=== PATIENT | male | born 1985 | race Caucasian/White ===

== ENCOUNTER 2023-01-08 07:15 | Inpatient (IN) | payer OTHER ==
[~2023-01-08] VITALS: Ht 170.2 cm; Wt 88.8 kg
[2023-01-08] MEDS ORDERED: LISI-894 PO (07:44)
[2023-01-08] MEDS ORDERED: METF-1211 PO (07:44)
[2023-01-08 08:28] LABS: BASOPHILS % (AUTO) 0.9 % (0.0-2.0); EOSINOPHILS % (AUTO) 4.5 % (1.0-6.0); HEMATOCRIT 30.1 % (41-53); HEMOGLOBIN 9.7 g/dL (13.5-17.5); LYMPHOCYTES # (AUTO) 1.4 K/uL (1.0-4.8); MEAN CORPUSCULAR HGB CONC 32.1 G/dL (31.0-37.0); MEAN CORPUSCULAR VOLUME 78 fL (80-100); MONOCYTES # (AUTO) 0.8 K/uL (0.1-1.0); MONOCYTES % (AUTO) 8.3 % (2.0-9.0); NEUTROPHILS % (AUTO) 72.3 % (40.0-70.0); PLATELET COUNT (AUTO) 311 K/uL (150-450); RED BLOOD CELL COUNT(AUTO) 3.86 MIL/uL (4.50-5.90); RED CELL DISTRIBUTION WIDTH 13.6 % (11.5-14.5)
[2023-01-08 08:40] LABS: PROTHROMBIN TIME 10.4 SEC (9.4-11.6)
[2023-01-08 08:50] LABS: ALBUMIN 1.9 g/dL (3.4-5.0); BILIRUBIN,TOTAL 0.5 mg/dL (0.1-1.0); CALCIUM, TOTAL 8.7 mg/dL (8.8-10.5); CREATININE 5.04 mg/dL (0.60-1.30); POTASSIUM 4.3 mmol/L (3.5-5.1); TOTAL PROTEIN, SERUM 6.4 g/dL (6.4-8.2)
[2023-01-08] MEDS ORDERED: INSULIN REGULAR, HUMAN 100 UNITS/ML IVP ONE (09:15)
[2023-01-08] MEDS ORDERED: SODIUM CHLORIDE 0.9% 1,000 ML IV ONE (09:15)
[2023-01-08] MEDS ORDERED: BISACODYL 10 MG RECTAL RECTAL SUPPOSITORY PR PRN (09:30)
[2023-01-08] MEDS ORDERED: ONDANSETRON HCL 4 MG/2 ML VIAL IVP PRN (09:30)
[2023-01-08] MEDS ORDERED: DEXTROSE 50%-WATER 25 GM/50 ML SYRINGE IVP PRN (09:30)
[2023-01-08] MEDS ORDERED: LISINOPRIL 20 MG TABLET PO SCH (10:00)
[2023-01-08 10:25] LABS: APPEARANCE,URINE CLEAR (CLEAR); BILIRUBIN,URINE NEGATIVE (NEGATIVE); GLUCOSE, URINE (UA) >=1000 mg/dL (NEGATIVE); KETONES,URINE TRACE mg/dL (NEGATIVE); LEUKOCYTE ESTERASE ,URINE NEGATIVE (NEGATIVE); NITRATE,URINE NEGATIVE (NEGATIVE); OCCULT BLOOD,URINE MODERATE (NEGATIVE); PROTEIN,URINE 300-600,SEE CONFIRM mg/dL (NEGATIVE); SPECIFIC GRAVITIY, URINE 1.013 (1.003-1.030); UROBILINOGEN,URINE <=1.0 mg/dL (<=1.0)
[2023-01-08 10:35] LABS: BACTERIA,URINE Rare /HPF (None Seen); COARSE GRANULAR CASTS,URINE 0-2 /LPF (None Seen); HYALINE CASTS, URINE 0-2 /LPF (None Seen)
[2023-01-08 10:36] LABS: SULFOSALICYLIC ACID,URINE 3+ (Negative)
[2023-01-08] MEDS: SODIUM CHLORIDE 0.9% 1,000 ML IV SCH ×4 (11:01→23:48)
[2023-01-08 11:56] VITALS: BP 185/113; PULSE 95; RESP 18; TEMP 98
[2023-01-08] MEDS: INSULIN LISPRO 100 UNITS/ML SQ PRN ×3 (12:16→20:44)
[2023-01-08] MEDS: CloNIDine HCL 0.1 MG TABLET PO PRN (12:22)
[2023-01-08 12:33] LABS: HEMOGLOBIN A1C 10.6 % (3.8-5.6)
[2023-01-08 12:53] VITALS: BP 164/101; PULSE 94
[2023-01-08 12:53] LABS: ANION GAP 14 mmol/L (8-16); CALCIUM, TOTAL 8.5 mg/dL (8.8-10.5); CARBON DIOXIDE 22 mmol/L (22-29); CHLORIDE 97 mmol/L (98-107); CREATININE 4.89 mg/dL (0.60-1.30); FERRITIN 165 ng/mL (26-388); GLOMERULAR FILTR. RATE CALC 13 mL/min (>60); POTASSIUM 4.2 mmol/L (3.5-5.1); SODIUM SERUM 133 mmol/L (136-145)
[2023-01-08 13:00] LABS: GLUCOSE,RANDOM 423 mg/dL (70-110)
[2023-01-08 13:16] LABS: GLUCOMETER DEV NAME(LOC) 5N.2C
[2023-01-08] MEDS: AmLODIPine BESYLATE 10 MG TABLET PO SCH (13:23)
[2023-01-08 13:30] LABS: % IRON SATURATION 19.8 % (30-44); IRON, SERUM 45 mcg/dL (50-175); TOTAL IRON BINDING CAPACITY 227 mcg/dL (250-450)
[2023-01-08 13:32] LABS: ACETAMINOPHEN < 2 mcg/mL (10-30)
[2023-01-08] MEDS: HEPARIN SODIUM,PORCINE 5,000 UNITS/ML VIAL SQ SCH ×2 (17:43→23:56)
[2023-01-08 17:44] VITALS: BP 178/112; PULSE 90; RESP 19; TEMP 97.8
[2023-01-08 18:00] LABS: GLUCOMETER DEV NAME(LOC) 5N.1C
[2023-01-08] MEDS ORDERED: LOSARTAN POTASSIUM 50 MG TABLET PO SCH (19:00)
[2023-01-08 20:02] VITALS: BP 145/83; PULSE 94; RESP 19; TEMP 97.9
[2023-01-08] MEDS: DOCUSATE SODIUM 100 MG CAPSULE PO SCH (20:22)
[2023-01-08] MEDS: INSULIN GLARGINE,HUM.REC.ANLOG 100 UNITS/ML SQ SCH (20:44)
[2023-01-08 20:56] LABS: GLUCOMETER DEV NAME(LOC) 5S.1B
[2023-01-08 23:04] LABS: CREATININE,URINE RANDOM 42.1 mg/dL (30.0-125.0)
[2023-01-09 00:27] VITALS: BP 142/98; PULSE 95; RESP 20; TEMP 98.2
[2023-01-09 05:23] VITALS: BP 144/92; PULSE 96; RESP 19; TEMP 97.7
[2023-01-09] MEDS: SODIUM CHLORIDE 0.9% 1,000 ML IV SCH ×2 (05:53→16:09)
[2023-01-09 06:11] LABS: CALCIUM, TOTAL 8.2 mg/dL (8.8-10.5); CREATININE 4.07 mg/dL (0.60-1.30); POTASSIUM 3.5 mmol/L (3.5-5.1)
[2023-01-09] MEDS: INSULIN LISPRO 100 UNITS/ML SQ PRN ×4 (06:20→20:50)
[2023-01-09 06:41] LABS: GLUCOMETER DEV NAME(LOC) 5N.2C
[2023-01-09 07:45] VITALS: BP 174/117; PULSE 99; RESP 23; TEMP 98.2
[2023-01-09] MEDS: HEPARIN SODIUM,PORCINE 5,000 UNITS/ML VIAL SQ SCH ×3 (08:40→23:56)
[2023-01-09] MEDS: FAMOTIDINE 20 MG TABLET PO SCH (08:40)
[2023-01-09] MEDS: AmLODIPine BESYLATE 10 MG TABLET PO SCH (08:41)
[2023-01-09] MEDS: CloNIDine HCL 0.1 MG TABLET PO PRN (08:41)
[2023-01-09] MEDS: DOCUSATE SODIUM 100 MG CAPSULE PO SCH ×2 (08:42→19:45)
[2023-01-09] MEDS ORDERED: AmLODIPine BESYLATE 10 MG TABLET PO SCH ×2 (09:00)
[2023-01-09] MEDS: CloNIDine HCL 0.1 MG TABLET PO SCH ×2 (10:12→20:53)
[2023-01-09 12:00] VITALS: BP 140/91; PULSE 94; RESP 18; TEMP 98.4
[2023-01-09 16:00] VITALS: BP 150/102; PULSE 94; RESP 16; TEMP 97.8
[2023-01-09 19:53] VITALS: BP 143/100; PULSE 95; RESP 18; TEMP 98.2
[2023-01-09 20:11] LABS: GLUCOMETER DEV NAME(LOC) 5N.2C
[2023-01-09 20:11] LABS: GLUCOMETER DEV NAME(LOC) 5N.2C
[2023-01-09] MEDS: INSULIN GLARGINE,HUM.REC.ANLOG 100 UNITS/ML SQ SCH (20:52)
[2023-01-09 21:21] LABS: GLUCOMETER DEV NAME(LOC) 5S.1B
[2023-01-10] VITALS (7 sets, daily range): BP systolic 134–177; BP diastolic 85–107; PULSE 86–94; RESP 17–18; TEMP 97.6–98.4
[2023-01-10] MEDS: SODIUM CHLORIDE 0.9% 1,000 ML IV SCH (05:01)
[2023-01-10] MEDS: CloNIDine HCL 0.1 MG TABLET PO PRN (05:56)
[2023-01-10 08:05] LABS: CALCIUM, TOTAL 8.2 mg/dL (8.8-10.5); CREATININE 3.71 mg/dL (0.60-1.30); POTASSIUM 3.8 mmol/L (3.5-5.1)
[2023-01-10] MEDS: DOCUSATE SODIUM 100 MG CAPSULE PO SCH ×2 (09:00→20:00)
[2023-01-10] MEDS: AmLODIPine BESYLATE 10 MG TABLET PO SCH (09:16)
[2023-01-10] MEDS: FAMOTIDINE 20 MG TABLET PO SCH (09:17)
[2023-01-10] MEDS: HEPARIN SODIUM,PORCINE 5,000 UNITS/ML VIAL SQ SCH ×3 (09:17→23:22)
[2023-01-10] MEDS: CloNIDine HCL 0.1 MG TABLET PO SCH ×2 (09:17→20:00)
[2023-01-10] MEDS: INSULIN LISPRO 100 UNITS/ML SQ PRN ×3 (11:40→20:01)
[2023-01-10 12:06] LABS: GLUCOMETER DEV NAME(LOC) 5S.1B
[2023-01-10 12:06] LABS: GLUCOMETER DEV NAME(LOC) 5S.1B
[2023-01-10] MEDS ORDERED: LOPERAMIDE HCL 2 MG CAPSULE PO PRN (16:15)
[2023-01-10 18:06] LABS: GLUCOMETER DEV NAME(LOC) 5S.1B
[2023-01-10] MEDS: INSULIN GLARGINE,HUM.REC.ANLOG 100 UNITS/ML SQ SCH (20:00)
[2023-01-10 20:45] LABS: GLUCOMETER DEV NAME(LOC) 5S.2C
[2023-01-11 01:38] VITALS: BP 148/99; PULSE 90; RESP 14; TEMP 97.7
[2023-01-11] MEDS: ACETAMINOPHEN 325 MG TABLET PO PRN (02:22)
[2023-01-11 06:00] VITALS: BP 150/97; PULSE 89; RESP 16; TEMP 98.5
[2023-01-11 08:00] VITALS: BP 146/103; PULSE 98; RESP 18; TEMP 97.5
[2023-01-11] MEDS: FAMOTIDINE 20 MG TABLET PO SCH (08:45)
[2023-01-11] MEDS: CloNIDine HCL 0.1 MG TABLET PO SCH ×2 (08:45→20:32)
[2023-01-11] MEDS: AmLODIPine BESYLATE 10 MG TABLET PO SCH (08:45)
[2023-01-11] MEDS: HEPARIN SODIUM,PORCINE 5,000 UNITS/ML VIAL SQ SCH ×3 (08:45→23:48)
[2023-01-11] MEDS: DOCUSATE SODIUM 100 MG CAPSULE PO SCH (08:46)
[2023-01-11 12:00] VITALS: BP 141/102; PULSE 91; RESP 18; TEMP 98
[2023-01-11] MEDS: INSULIN LISPRO 100 UNITS/ML SQ PRN ×3 (12:28→20:34)
[2023-01-11] MEDS ORDERED: EPOETIN ALFA 10,000 UNITS/ML VIAL SQ ONE (15:00)
[2023-01-11 16:00] VITALS: BP 157/100; PULSE 89; RESP 18; TEMP 98.4
[2023-01-11 20:03] VITALS: BP 144/85; PULSE 90; RESP 19; TEMP 97.6
[2023-01-11] MEDS: INSULIN GLARGINE,HUM.REC.ANLOG 100 UNITS/ML SQ SCH (20:33)
[2023-01-11 22:56] LABS: GLUCOMETER DEV NAME(LOC) 5N.1C
[2023-01-11 22:56] LABS: GLUCOMETER DEV NAME(LOC) 5N.1C
[2023-01-11] MEDS: CloNIDine HCL 0.1 MG TABLET PO PRN (23:49)
[2023-01-12] VITALS (7 sets, daily range): BP systolic 113–162; BP diastolic 68–102; PULSE 80–87; RESP 16–20; TEMP 97.5–98.2
[2023-01-12 00:36] LABS: GLUCOMETER DEV NAME(LOC) 5S.1B
[2023-01-12 00:36] LABS: GLUCOMETER DEV NAME(LOC) 5S.2C
[2023-01-12] MEDS: INSULIN LISPRO 100 UNITS/ML SQ PRN ×2 (06:05→20:59)
[2023-01-12 06:49] LABS: BASOPHILS % (AUTO) 1.3 % (0.0-2.0); HEMATOCRIT 26.4 % (41-53); HEMOGLOBIN 8.8 g/dL (13.5-17.5); LYMPHOCYTES # (AUTO) 1.7 K/uL (1.0-4.8); MEAN CORPUSCULAR HEMOGLOBIN 25.5 pg (26.0-34.0); MEAN CORPUSCULAR HGB CONC 33.5 G/dL (31.0-37.0); MEAN CORPUSCULAR VOLUME 76 fL (80-100); MONOCYTES # (AUTO) 0.5 K/uL (0.1-1.0); MONOCYTES % (AUTO) 6.4 % (2.0-9.0); NEUTROPHILS # (AUTO) 4.6 K/uL (1.8-7.7); NEUTROPHILS % (AUTO) 63.3 % (40.0-70.0); PLATELET COUNT (AUTO) 289 K/uL (150-450); RED BLOOD CELL COUNT(AUTO) 3.45 MIL/uL (4.50-5.90); RED CELL DISTRIBUTION WIDTH 13.5 % (11.5-14.5)
[2023-01-12 07:08] LABS: CREATININE 3.63 mg/dL (0.60-1.30); POTASSIUM 3.6 mmol/L (3.5-5.1)
[2023-01-12 07:15] LABS: MAGNESIUM 1.7 mg/dL (1.80-2.40); PHOSPHORUS 3.8 mg/dL (2.5-4.9)
[2023-01-12] MEDS: FAMOTIDINE 20 MG TABLET PO SCH (09:33)
[2023-01-12] MEDS: HEPARIN SODIUM,PORCINE 5,000 UNITS/ML VIAL SQ SCH ×2 (09:33→17:46)
[2023-01-12] MEDS: AmLODIPine BESYLATE 10 MG TABLET PO SCH (09:33)
[2023-01-12] MEDS: CloNIDine HCL 0.1 MG TABLET PO SCH ×3 (09:34→20:05)
[2023-01-12] MEDS ORDERED: HydrALAZINE HCL 25 MG TABLET PO ONE (14:30)
[2023-01-12] MEDS ORDERED: MAGNESIUM OXIDE 400 MG TABLET PO ONE (15:30)
[2023-01-12 17:26] LABS: GLUCOMETER DEV NAME(LOC) 5N.1C
[2023-01-12] MEDS: HydrALAZINE HCL 50 MG TABLET PO SCH ×2 (17:51→20:01)
[2023-01-12] MEDS: ACETAMINOPHEN 325 MG TABLET PO PRN (20:05)
[2023-01-12] MEDS: INSULIN GLARGINE,HUM.REC.ANLOG 100 UNITS/ML SQ SCH (20:58)
[2023-01-13] VITALS: BP 134/84; PULSE 86; RESP 16; TEMP 97.4
[2023-01-13] MEDS: HEPARIN SODIUM,PORCINE 5,000 UNITS/ML VIAL SQ SCH ×3 (00:21→16:52)
[2023-01-13 02:16] LABS: GLUCOMETER DEV NAME(LOC) 5N.2C
[2023-01-13 04:00] VITALS: BP 126/80; PULSE 84; RESP 18; TEMP 98.1
[2023-01-13 05:41] LABS: GLUCOMETER DEV NAME(LOC) 5S.1B
[2023-01-13] MEDS: CloNIDine HCL 0.1 MG TABLET PO SCH ×3 (08:54→21:10)
[2023-01-13] MEDS: AmLODIPine BESYLATE 10 MG TABLET PO SCH (08:54)
[2023-01-13] MEDS: FAMOTIDINE 20 MG TABLET PO SCH (08:55)
[2023-01-13] MEDS: HydrALAZINE HCL 50 MG TABLET PO SCH ×3 (08:56→21:51)
[2023-01-13 09:22] VITALS: BP 141/86; PULSE 87; RESP 18; TEMP 98.4
[2023-01-13 11:06] VITALS: BP 126/75; PULSE 82; RESP 18; TEMP 98.1
[2023-01-13] MEDS: INSULIN LISPRO 100 UNITS/ML SQ PRN ×3 (11:29→21:23)
[2023-01-13 11:41] LABS: GLUCOMETER DEV NAME(LOC) 5N.1C
[2023-01-13 12:26] LABS: GLUCOMETER DEV NAME(LOC) 5N.2C
[2023-01-13] MEDS ORDERED: FAMO20 PO (15:21)
[2023-01-13] MEDS ORDERED: HYDR-4174 PO (15:21)
[2023-01-13] MEDS ORDERED: AMLO-258 PO (15:21)
[2023-01-13] MEDS ORDERED: CLON0.1T2 PO (15:21)
[2023-01-13] MEDS ORDERED: INSU3INS3 SQ (15:24)
[2023-01-13 17:31] LABS: GLUCOMETER DEV NAME(LOC) 5S.2C
[2023-01-13 20:07] VITALS: BP 143/96; PULSE 78; RESP 18; TEMP 97.5
[2023-01-13] MEDS: INSULIN GLARGINE,HUM.REC.ANLOG 100 UNITS/ML SQ SCH (21:22)
[2023-01-13 21:46] LABS: GLUCOMETER DEV NAME(LOC) 5S.1B
[2023-01-14] MEDS: HEPARIN SODIUM,PORCINE 5,000 UNITS/ML VIAL SQ SCH (00:34)
== END 2023-01-14 02:15 | DRG 638 ==
LOC: EMS 07:17 → AHU 08:38 → 5S 10:40
PROVIDERS: ADMIT Internal Medicine; ATTEND Internal Medicine
DX: E11.65 Type 2 diabetes mellitus with hyperglycemia (principal); E87.1 Hypo-osmolality and hyponatremia; N17.9 Acute kidney failure, unspecified; E87.20 Acidosis, unspecified; E11.22 Type 2 diabetes mellitus with diabetic chronic kidney disease; I13.10 Hypertensive heart and chronic kidney disease without heart failure, with stage 1 through stage 4 chronic kidney disease, or unspecified chronic kidney disease; N18.30 Chronic kidney disease, stage 3 unspecified; T78.3XXA Angioneurotic edema, initial encounter; T50.905A Adverse effect of unspecified drugs, medicaments and biological substances, initial encounter; D63.1 Anemia in chronic kidney disease; E66.9 Obesity, unspecified; E88.09 Other disorders of plasma-protein metabolism, not elsewhere classified; E11.40 Type 2 diabetes mellitus with diabetic neuropathy, unspecified; Z68.31 Body mass index [BMI] 31.0-31.9, adult; Z79.899 Other long term (current) drug therapy; Z79.84 Long term (current) use of oral hypoglycemic drugs; Z83.3 Family history of diabetes mellitus
CPT/HCPCS: 71045; 76770; 80048; 80053; 81001; 81002; 82010; 82043; 82550; 82570; 82728; 82962; 83036; 83540; 83550; 83605; 83735; 83880; 84100; 84156; 84300; 84484; 84540; 85025; 85610; 85730; 87086; 87186; 93005; 99285; G0480; G0481; J0885; J1644; J1815; J7030; 36415-L1; 36415-TC

== ENCOUNTER 2023-03-13 01:57 | Inpatient (IN) | payer OTHER ==
[~2023-03-13] VITALS: Ht 165.1 cm; Wt 116.6 kg
[2023-03-13] VITALS (13 sets, daily range): BP systolic 125–173; BP diastolic 62–107; PULSE 90–118; RESP 10–20; TEMP 97.6–98.8; O2SAT 86–98
[~2023-03-13 01:57] MED LIST: AMLO-258 PO; CLON0.1T2 PO; FAMO20 PO; HYDR-4174 PO; INSU3INS3 SQ
[2023-03-13] MEDS ORDERED: KETOROLAC TROMETHAMINE 30 MG/ML VIAL IVP ONE (02:45)
[2023-03-13] MEDS ORDERED: KETOROLAC TROMETHAMINE 15 MG/ML VIAL IVP ONE (02:45)
[2023-03-13 03:08] LABS: BASOPHILS % (AUTO) 0.9 % (0.0-2.0); EOSINOPHILS % (AUTO) 8.5 % (1.0-6.0); LYMPHOCYTES # (AUTO) 0.8 K/uL (1.0-4.8); LYMPHOCYTES % (AUTO) 18.5 % (22.0-44.0); MEAN CORPUSCULAR HEMOGLOBIN 25.1 pg (26.0-34.0); MEAN CORPUSCULAR HGB CONC 31.9 G/dL (31.0-37.0); MEAN CORPUSCULAR VOLUME 79 fL (80-100); MONOCYTES # (AUTO) 0.5 K/uL (0.1-1.0); MONOCYTES % (AUTO) 11.9 % (2.0-9.0); NEUTROPHILS # (AUTO) 2.7 K/uL (1.8-7.7); NEUTROPHILS % (AUTO) 60.2 % (40.0-70.0); PLATELET COUNT (AUTO) 206 K/uL (150-450); RED BLOOD CELL COUNT(AUTO) 2.67 MIL/uL (4.50-5.90); RED CELL DISTRIBUTION WIDTH 17.6 % (11.5-14.5); WHITE BLOOD COUNT (AUTO) 4.6 K/uL (4.5-11.0)
[2023-03-13 03:11] LABS: CALCIUM, TOTAL 8.3 mg/dL (8.8-10.5); CREATININE 5.25 mg/dL (0.60-1.30); POTASSIUM 5.7 mmol/L (3.5-5.1)
[2023-03-13 03:19] LABS: TROPONIN I-HIGH SENSITIVITY 20 ng/L (<76)
[2023-03-13 03:28] LABS: HEMOGLOBIN 6.7 g/dL (13.5-17.5)
[2023-03-13 03:36] LABS: ALBUMIN 2.1 g/dL (3.4-5.0); BILIRUBIN,TOTAL 0.2 mg/dL (0.1-1.0); TOTAL PROTEIN, SERUM 6.7 g/dL (6.4-8.2)
[2023-03-13 03:40] LABS: APPEARANCE,URINE CLEAR (CLEAR); BILIRUBIN,URINE NEGATIVE (NEGATIVE); COLOR,URINE LIGHT YELLOW (YELLOW); GLUCOSE, URINE (UA) >=1000 mg/dL (NEGATIVE); KETONES,URINE NEGATIVE (NEGATIVE); LEUKOCYTE ESTERASE ,URINE NEGATIVE (NEGATIVE); NITRATE,URINE NEGATIVE (NEGATIVE); OCCULT BLOOD,URINE TRACE (NEGATIVE); PROTEIN,URINE 300-600,SEE CONFIRM mg/dL (NEGATIVE); SPECIFIC GRAVITIY, URINE 1.012 (1.003-1.030); UROBILINOGEN,URINE <=1.0 mg/dL (<=1.0)
[2023-03-13] MEDS ORDERED: ALBUTEROL SULFATE 2.5 MG/0.5 ML 5 ML NEB SOLUTION NEB ONE (03:45)
[2023-03-13] MEDS ORDERED: SODIUM POLYSTYRENE SULFONATE 15 GM/60 ML SUSPENSION BOTTLE PO ONE (03:45)
[2023-03-13] MEDS ORDERED: FUROSEMIDE 40 MG/4 ML VIAL IVP ONE (03:45)
[2023-03-13 04:03] LABS: BACTERIA,URINE None Seen /HPF (None Seen); SQUAMOUS EPITHELIAL CELL,UR Few /LPF (None Seen); SULFOSALICYLIC ACID,URINE 4+ (Negative); WBC,URINE 0-2 /HPF (0-5)
[2023-03-13] MEDS ORDERED: ONDANSETRON HCL 4 MG/2 ML VIAL IVP PRN (04:30)
[2023-03-13 04:56] LABS: COVID AG,FIA SOURCE NASAL SWAB
[2023-03-13 05:29] LABS: CREATININE,URINE RANDOM 42.7 mg/dL (30.0-125.0)
[2023-03-13 05:32] LABS: % IRON SATURATION 36.5 % (30-44)
[2023-03-13] MEDS ORDERED: DEXTROSE 50%-WATER 25 GM/50 ML SYRINGE IVP PRN (05:45)
[2023-03-13 05:47] LABS: SARS-COV2 (COVID) ANTIGEN,FIA Negative (Negative)
[2023-03-13 06:15] LABS: CREATININE 5.37 mg/dL (0.60-1.30); POTASSIUM 4.9 mmol/L (3.5-5.1)
[2023-03-13] MEDS: OXYGEN THERAPY IH SCH ×2 (06:36→20:23)
[2023-03-13] MEDS ORDERED: BUMETANIDE 0.25 MG/ML 4 ML VIAL IVP ONE (06:45)
[2023-03-13] MEDS: DOCUSATE SODIUM 100 MG CAPSULE PO SCH ×2 (08:33→20:24)
[2023-03-13] MEDS: HydrALAZINE HCL 50 MG TABLET PO SCH ×3 (09:32→20:05)
[2023-03-13] MEDS: BUMETANIDE 0.25 MG/ML 4 ML VIAL IVP SCH ×2 (09:34→20:05)
[2023-03-13] MEDS: AmLODIPine BESYLATE 5 MG TABLET PO SCH ×2 (09:47→20:05)
[2023-03-13 10:04] LABS: EOSINOPHILS % (AUTO) 3.1 % (1.0-6.0); HEMATOCRIT 22.8 % (41-53); HEMOGLOBIN 7.3 g/dL (13.5-17.5); LYMPHOCYTES # (AUTO) 0.8 K/uL (1.0-4.8); LYMPHOCYTES % (AUTO) 17.1 % (22.0-44.0); MEAN CORPUSCULAR HEMOGLOBIN 25.6 pg (26.0-34.0); MEAN CORPUSCULAR HGB CONC 31.9 G/dL (31.0-37.0); MEAN CORPUSCULAR VOLUME 80 fL (80-100); MONOCYTES # (AUTO) 0.7 K/uL (0.1-1.0); MONOCYTES % (AUTO) 13.9 % (2.0-9.0); NEUTROPHILS # (AUTO) 3.2 K/uL (1.8-7.7); NEUTROPHILS % (AUTO) 64.9 % (40.0-70.0); PLATELET COUNT (AUTO) 202 K/uL (150-450); RED BLOOD CELL COUNT(AUTO) 2.84 MIL/uL (4.50-5.90); RED CELL DISTRIBUTION WIDTH 18.4 % (11.5-14.5)
[2023-03-13 12:13] LABS: CREATININE 5.27 mg/dL (0.60-1.30)
[2023-03-13] MEDS: CITRIC ACID/SODIUM CITRATE 30 ML SOLUTION UDCUP PO SCH ×2 (12:15→21:11)
[2023-03-13] MEDS: INSULIN LISPRO 100 UNITS/ML SQ PRN ×3 (12:16→21:18)
[2023-03-13 12:46] LABS: ABG CARBOXYHEMOGLOBIN 1.6 % (0.0-1.5); ABG HCO3 16.2 mmol/L (22.0-26.0); ABG METHEMOGLOBIN 0.3 % (0.0-1.5); ABG OXYGEN CONTENT 9.8 mL/dL (15.0-23.0); ABG OXYGEN SATURATION 92.8 % (95.0-98.0); ABG PCO2 36 mmHg (35-45); PO2, ARTERIAL BG 66.1 mmHg (92.0-100.0); SOURCE, BLOOD GAS ARTERIAL
[2023-03-13 12:47] LABS: ABG PH 7.264 (7.350-7.450); ABG TOTAL HEMOGLOBIN 7.6 G/dL (12.0-18.0); ALLEN TEST, BLOOD GAS POS; SITE, BLOOD GAS RT BRACHIAL
[2023-03-13 18:56] LABS: CALCIUM, TOTAL 8.2 mg/dL (8.8-10.5); CREATININE 5.38 mg/dL (0.60-1.30); POTASSIUM 4.9 mmol/L (3.5-5.1)
[2023-03-13 19:15] LABS: PH,URINE DRUG SCREEN 5.5 (5.0-8.0)
[2023-03-13 19:21] LABS: ALCOHOL, URINE DRUG SCREEN NEGATIVE (NEGATIVE); AMPHET/METH SCREEN,URINE NEGATIVE (NEGATIVE); BARBITURATE SCREEN, URINE NEGATIVE (NEGATIVE); BENZODIAZEPINES SCREEN,URINE NEGATIVE (NEGATIVE); CANNABINOID SCREEN,URINE NEGATIVE (NEGATIVE); COCAINE SCREEN,URINE NEGATIVE (NEGATIVE); METHADONE SCREEN, URINE NEGATIVE (NEGATIVE); OPIATE SCREEN,URINE NEGATIVE (NEGATIVE); PHENCYCLIDINE SCREEN,URINE NEGATIVE (NEGATIVE)
[2023-03-13 23:10] LABS: GLUCOSE,POINT OF CARE 266 MG/DL (70-110)
[2023-03-13 23:10] LABS: GLUCOMETER DEV NAME(LOC) PVLAB.39; GLUCOSE,POINT OF CARE 272 MG/DL (70-110)
[2023-03-14] VITALS (10 sets, daily range): BP systolic 143–172; BP diastolic 79–97; PULSE 99–118; RESP 9–22; TEMP 97.5–98.3; O2SAT 95–97
[2023-03-14 06:56] LABS: GLUCOMETER DEV NAME(LOC) PVLAB.39; GLUCOSE,POINT OF CARE 123 MG/DL (70-110)
[2023-03-14 07:02] LABS: BASOPHILS % (AUTO) 0.9 % (0.0-2.0); EOSINOPHILS % (AUTO) 6.1 % (1.0-6.0); HEMATOCRIT 23.8 % (41-53); HEMOGLOBIN 7.8 g/dL (13.5-17.5); LYMPHOCYTES % (AUTO) 17.5 % (22.0-44.0); MEAN CORPUSCULAR HEMOGLOBIN 26.1 pg (26.0-34.0); MEAN CORPUSCULAR HGB CONC 32.8 G/dL (31.0-37.0); MEAN CORPUSCULAR VOLUME 80 fL (80-100); MONOCYTES # (AUTO) 0.6 K/uL (0.1-1.0); MONOCYTES % (AUTO) 10.2 % (2.0-9.0); NEUTROPHILS # (AUTO) 3.9 K/uL (1.8-7.7); NEUTROPHILS % (AUTO) 65.3 % (40.0-70.0); PLATELET COUNT (AUTO) 247 K/uL (150-450); RED BLOOD CELL COUNT(AUTO) 2.99 MIL/uL (4.50-5.90); RED CELL DISTRIBUTION WIDTH 18.2 % (11.5-14.5); WHITE BLOOD COUNT (AUTO) 5.9 K/uL (4.5-11.0)
[2023-03-14 07:23] LABS: CALCIUM, TOTAL 8.5 mg/dL (8.8-10.5); CREATININE 5.24 mg/dL (0.60-1.30); POTASSIUM 4.6 mmol/L (3.5-5.1)
[2023-03-14 07:24] LABS: TROPONIN I-HIGH SENSITIVITY 19 ng/L (<76)
[2023-03-14] MEDS: AmLODIPine BESYLATE 5 MG TABLET PO SCH ×2 (07:47→21:33)
[2023-03-14] MEDS: HydrALAZINE HCL 50 MG TABLET PO SCH ×3 (07:47→21:32)
[2023-03-14] MEDS: DOCUSATE SODIUM 100 MG CAPSULE PO SCH ×3 (07:47→21:33)
[2023-03-14] MEDS: OXYGEN THERAPY IH SCH ×2 (07:47→21:49)
[2023-03-14] MEDS: BUMETANIDE 0.25 MG/ML 4 ML VIAL IVP SCH ×4 (07:48→21:31)
[2023-03-14] MEDS: CITRIC ACID/SODIUM CITRATE 30 ML SOLUTION UDCUP PO SCH ×2 (07:48→21:32)
[2023-03-14] MEDS ORDERED: EPOETIN ALFA 10,000 UNITS/ML VIAL SQ ONE (09:45)
[2023-03-14] MEDS: INSULIN LISPRO 100 UNITS/ML SQ PRN ×3 (11:22→21:43)
[2023-03-14 18:01] LABS: GLUCOMETER DEV NAME(LOC) ICUN.5; GLUCOSE,POINT OF CARE 242 MG/DL (70-110)
[2023-03-14 19:51] LABS: GLUCOMETER DEV NAME(LOC) 5S.1B; GLUCOSE,POINT OF CARE 281 MG/DL (70-110)
[2023-03-14] MEDS ORDERED: CARVEDILOL 3.125 MG TABLET PO SCH (21:00)
[2023-03-14 23:21] LABS: GLUCOMETER DEV NAME(LOC) 5S.1B; GLUCOSE,POINT OF CARE 276 MG/DL (70-110)
[2023-03-15] VITALS (10 sets, daily range): BP systolic 140–155; BP diastolic 79–98; PULSE 99–108; RESP 14–20; TEMP 97.5–98.6; O2SAT 98
[2023-03-15] MEDS: INSULIN LISPRO 100 UNITS/ML SQ PRN ×4 (06:11→21:50)
[2023-03-15 07:15] LABS: CALCIUM, TOTAL 8.1 mg/dL (8.8-10.5); CREATININE 5.37 mg/dL (0.60-1.30); POTASSIUM 4.3 mmol/L (3.5-5.1)
[2023-03-15] MEDS: OXYGEN THERAPY IH SCH ×2 (08:00→20:00)
[2023-03-15] MEDS: CARVEDILOL 6.25 MG TABLET PO SCH ×2 (08:30→21:53)
[2023-03-15] MEDS: DOCUSATE SODIUM 100 MG CAPSULE PO SCH ×3 (08:30→21:52)
[2023-03-15] MEDS: CITRIC ACID/SODIUM CITRATE 30 ML SOLUTION UDCUP PO SCH ×2 (08:30→21:53)
[2023-03-15] MEDS: AmLODIPine BESYLATE 5 MG TABLET PO SCH ×2 (08:30→21:52)
[2023-03-15] MEDS: HydrALAZINE HCL 50 MG TABLET PO SCH ×3 (08:31→21:52)
[2023-03-15] MEDS: BUMETANIDE 0.25 MG/ML 4 ML VIAL IVP SCH ×3 (08:33→21:51)
[2023-03-15 11:31] LABS: GLUCOMETER DEV NAME(LOC) 5N.1C; GLUCOSE,POINT OF CARE 185 MG/DL (70-110)
[2023-03-15] MEDS ORDERED: EPOETIN ALFA 10,000 UNITS/ML VIAL SQ ONE (11:45)
[2023-03-15 12:20] LABS: CREATININE,URINE 31.5 mg/dL (30.0-125.0)
[2023-03-15 12:48] LABS: CREATININE,SERUM FOR CRCL 5.37 mg/dL (0.60-1.30)
[2023-03-15 16:36] LABS: GLUCOMETER DEV NAME(LOC) 5S.1B; GLUCOSE,POINT OF CARE 314 MG/DL (70-110)
[2023-03-15] MEDS: ACETAMINOPHEN 325 MG TABLET PO PRN (17:15)
[2023-03-15 20:11] LABS: GLUCOMETER DEV NAME(LOC) 5N.2C; GLUCOSE,POINT OF CARE 327 MG/DL (70-110)
[2023-03-16 04:31] VITALS: BP 146/78; PULSE 108; RESP 18; TEMP 98.2
[2023-03-16] MEDS: INSULIN LISPRO 100 UNITS/ML SQ PRN ×4 (06:05→20:27)
[2023-03-16 06:06] LABS: PARATHYROID HORMONE INTACT 97 pg/mL (15-65)
[2023-03-16 07:59] VITALS: BP 123/86; PULSE 105; RESP 20; TEMP 98.5
[2023-03-16] MEDS: OXYGEN THERAPY IH SCH ×2 (08:16→20:00)
[2023-03-16] MEDS: DOCUSATE SODIUM 100 MG CAPSULE PO SCH ×2 (08:18→21:00)
[2023-03-16] MEDS: BUMETANIDE 0.25 MG/ML 4 ML VIAL IVP SCH ×3 (08:18→20:29)
[2023-03-16] MEDS: HydrALAZINE HCL 50 MG TABLET PO SCH ×3 (08:18→20:29)
[2023-03-16] MEDS: CITRIC ACID/SODIUM CITRATE 30 ML SOLUTION UDCUP PO SCH ×2 (08:18→20:29)
[2023-03-16] MEDS: AmLODIPine BESYLATE 5 MG TABLET PO SCH ×2 (08:19→20:29)
[2023-03-16] MEDS: CARVEDILOL 12.5 MG TABLET PO SCH ×2 (08:19→20:29)
[2023-03-16 11:41] LABS: GLUCOMETER DEV NAME(LOC) 5N.2C; GLUCOSE,POINT OF CARE 254 MG/DL (70-110)
[2023-03-16 11:41] LABS: GLUCOMETER DEV NAME(LOC) 5N.2C; GLUCOSE,POINT OF CARE 231 MG/DL (70-110)
[2023-03-16 11:43] VITALS: BP 146/88; PULSE 101; RESP 20; TEMP 98.1
[2023-03-16 13:41] LABS: GLUCOMETER DEV NAME(LOC) 5N.1C; GLUCOSE,POINT OF CARE 304 MG/DL (70-110)
[2023-03-16 16:00] VITALS: BP 123/87; PULSE 101; RESP 20; TEMP 98.2
[2023-03-16 20:11] VITALS: BP 133/78; PULSE 98; RESP 18; TEMP 97.8
[2023-03-16 22:56] LABS: GLUCOMETER DEV NAME(LOC) 5N.2C; GLUCOSE,POINT OF CARE 266 MG/DL (70-110)
[2023-03-16 23:47] VITALS: BP 143/79; PULSE 96; RESP 18; TEMP 98.7
[2023-03-17 01:36] LABS: GLUCOMETER DEV NAME(LOC) 5S.1B; GLUCOSE,POINT OF CARE 313 MG/DL (70-110)
[2023-03-17 04:26] VITALS: BP 144/93; PULSE 100; RESP 20; TEMP 98
[2023-03-17] MEDS: INSULIN LISPRO 100 UNITS/ML SQ PRN ×4 (05:25→20:59)
[2023-03-17 06:06] LABS: ALPHA-1 URINE (ELP24) 5.8 %; BETA URINE(ELP24) 17.4 %; GAMMA URINE(ELP24) 25.7 %; PROTEIN,URINE 24HR 20976 mg/24 hr (30-150)
[2023-03-17 06:48] LABS: BASOPHILS % (AUTO) 0.6 % (0.0-2.0); EOSINOPHILS % (AUTO) 8.6 % (1.0-6.0); HEMATOCRIT 23.5 % (41-53); HEMOGLOBIN 7.7 g/dL (13.5-17.5); LYMPHOCYTES # (AUTO) 1.2 K/uL (1.0-4.8); LYMPHOCYTES % (AUTO) 19.8 % (22.0-44.0); MEAN CORPUSCULAR HEMOGLOBIN 25.9 pg (26.0-34.0); MEAN CORPUSCULAR HGB CONC 32.6 G/dL (31.0-37.0); MEAN CORPUSCULAR VOLUME 80 fL (80-100); MONOCYTES # (AUTO) 0.5 K/uL (0.1-1.0); MONOCYTES % (AUTO) 7.7 % (2.0-9.0); NEUTROPHILS # (AUTO) 3.9 K/uL (1.8-7.7); NEUTROPHILS % (AUTO) 63.3 % (40.0-70.0); PLATELET COUNT (AUTO) 249 K/uL (150-450); RED BLOOD CELL COUNT(AUTO) 2.96 MIL/uL (4.50-5.90); WHITE BLOOD COUNT (AUTO) 6.1 K/uL (4.5-11.0)
[2023-03-17 07:08] LABS: CALCIUM, TOTAL 8.6 mg/dL (8.8-10.5); CREATININE 5.37 mg/dL (0.60-1.30); MAGNESIUM 1.9 mg/dL (1.80-2.40); PHOSPHORUS 5.9 mg/dL (2.5-4.9); POTASSIUM 4.2 mmol/L (3.5-5.1)
[2023-03-17 08:21] VITALS: BP 154/99; PULSE 95; RESP 18; TEMP 98.4
[2023-03-17] MEDS: BUMETANIDE 0.25 MG/ML 4 ML VIAL IVP SCH ×3 (08:30→20:58)
[2023-03-17] MEDS: HydrALAZINE HCL 50 MG TABLET PO SCH ×3 (08:31→20:58)
[2023-03-17] MEDS: CITRIC ACID/SODIUM CITRATE 30 ML SOLUTION UDCUP PO SCH ×2 (08:31→20:57)
[2023-03-17] MEDS: AmLODIPine BESYLATE 5 MG TABLET PO SCH ×2 (08:32→20:58)
[2023-03-17] MEDS: CARVEDILOL 12.5 MG TABLET PO SCH ×2 (08:32→20:58)
[2023-03-17] MEDS: DOCUSATE SODIUM 100 MG CAPSULE PO SCH ×2 (08:32→21:00)
[2023-03-17] MEDS: OXYGEN THERAPY IH SCH ×2 (08:36→20:00)
[2023-03-17] MEDS ORDERED: METOLAZONE 5 MG TABLET PO ONE (11:00)
[2023-03-17 11:26] LABS: GLUCOMETER DEV NAME(LOC) 5S.1B; GLUCOSE,POINT OF CARE 251 MG/DL (70-110)
[2023-03-17 11:56] VITALS: BP 121/76; PULSE 93; RESP 18; TEMP 98.2
[2023-03-17 16:09] VITALS: BP 138/84; PULSE 95; RESP 18; TEMP 98
[2023-03-17 20:42] VITALS: BP 155/93; PULSE 93; RESP 19; TEMP 97.6
[2023-03-17 22:01] LABS: GLUCOMETER DEV NAME(LOC) 5N.1C; GLUCOSE,POINT OF CARE 324 MG/DL (70-110)
[2023-03-17 22:06] LABS: GLUCOMETER DEV NAME(LOC) 5N.2C; GLUCOSE,POINT OF CARE 274 MG/DL (70-110)
[2023-03-17 22:06] LABS: GLUCOMETER DEV NAME(LOC) 5S.1B; GLUCOSE,POINT OF CARE 310 MG/DL (70-110)
[2023-03-18] VITALS: BP 142/89; PULSE 93; RESP 18; TEMP 98
[2023-03-18 04:56] VITALS: BP 157/88; PULSE 99; RESP 19; TEMP 98.2
[2023-03-18] MEDS: INSULIN LISPRO 100 UNITS/ML SQ PRN ×4 (06:46→21:43)
[2023-03-18 08:00] VITALS: BP 117/77; PULSE 99; RESP 18; TEMP 98.1
[2023-03-18] MEDS: CARVEDILOL 12.5 MG TABLET PO SCH ×2 (08:42→21:42)
[2023-03-18] MEDS: AmLODIPine BESYLATE 5 MG TABLET PO SCH ×2 (08:42→21:42)
[2023-03-18] MEDS: HydrALAZINE HCL 50 MG TABLET PO SCH ×3 (08:43→21:42)
[2023-03-18] MEDS: CITRIC ACID/SODIUM CITRATE 30 ML SOLUTION UDCUP PO SCH ×2 (08:43→21:42)
[2023-03-18] MEDS: BUMETANIDE 0.25 MG/ML 4 ML VIAL IVP SCH ×3 (08:53→21:42)
[2023-03-18] MEDS: DOCUSATE SODIUM 100 MG CAPSULE PO SCH ×2 (08:54→21:00)
[2023-03-18] MEDS ORDERED: METOLAZONE 5 MG TABLET PO ONE (09:00)
[2023-03-18 10:31] LABS: GLUCOMETER DEV NAME(LOC) 5S.2C; GLUCOSE,POINT OF CARE 285 MG/DL (70-110)
[2023-03-18 11:14] VITALS: BP 128/72; PULSE 96; RESP 18; TEMP 98.4
[2023-03-18 16:14] VITALS: BP 142/81; PULSE 92; RESP 18; TEMP 98.3
[2023-03-18] MEDS ORDERED: INSULIN LISPRO 100 UNITS/ML SQ ONE (17:45)
[2023-03-18 19:02] LABS: GLUCOMETER DEV NAME(LOC) 5N.1C; GLUCOSE,POINT OF CARE 363 MG/DL (70-110)
[2023-03-18 20:10] VITALS: BP 142/79; PULSE 95; RESP 19; TEMP 97.8
[2023-03-18] MEDS: OXYGEN THERAPY IH SCH (21:42)
[2023-03-19 00:16] VITALS: BP 122/61; PULSE 93; RESP 18; TEMP 98.3
[2023-03-19 04:55] VITALS: BP 133/76; PULSE 92; RESP 18; TEMP 97.7
[2023-03-19 06:17] LABS: EOSINOPHILS % (AUTO) 7.7 % (1.0-6.0); HEMATOCRIT 22.3 % (41-53); HEMOGLOBIN 7.5 g/dL (13.5-17.5); LYMPHOCYTES # (AUTO) 1.2 K/uL (1.0-4.8); LYMPHOCYTES % (AUTO) 18.9 % (22.0-44.0); MEAN CORPUSCULAR HEMOGLOBIN 26.1 pg (26.0-34.0); MEAN CORPUSCULAR HGB CONC 33.6 G/dL (31.0-37.0); MEAN CORPUSCULAR VOLUME 78 fL (80-100); MONOCYTES # (AUTO) 0.7 K/uL (0.1-1.0); MONOCYTES % (AUTO) 10.3 % (2.0-9.0); NEUTROPHILS % (AUTO) 62.1 % (40.0-70.0); PLATELET COUNT (AUTO) 232 K/uL (150-450); RED BLOOD CELL COUNT(AUTO) 2.86 MIL/uL (4.50-5.90); WHITE BLOOD COUNT (AUTO) 6.4 K/uL (4.5-11.0)
[2023-03-19] MEDS: INSULIN LISPRO 100 UNITS/ML SQ PRN ×4 (06:23→21:04)
[2023-03-19 06:28] LABS: CALCIUM, TOTAL 8.4 mg/dL (8.8-10.5); CREATININE 5.47 mg/dL (0.60-1.30); POTASSIUM 3.9 mmol/L (3.5-5.1)
[2023-03-19 06:37] LABS: MAGNESIUM 1.7 mg/dL (1.80-2.40); PHOSPHORUS 5.6 mg/dL (2.5-4.9)
[2023-03-19 07:13] VITALS: BP 132/84; PULSE 92; RESP 18; TEMP 98.2
[2023-03-19] MEDS: BUMETANIDE 0.25 MG/ML 4 ML VIAL IVP SCH ×3 (07:57→21:06)
[2023-03-19] MEDS: AmLODIPine BESYLATE 5 MG TABLET PO SCH ×2 (07:57→21:05)
[2023-03-19] MEDS: CARVEDILOL 12.5 MG TABLET PO SCH ×2 (07:57→21:05)
[2023-03-19] MEDS: HydrALAZINE HCL 50 MG TABLET PO SCH ×3 (07:57→21:05)
[2023-03-19] MEDS: CITRIC ACID/SODIUM CITRATE 30 ML SOLUTION UDCUP PO SCH ×2 (07:57→21:06)
[2023-03-19] MEDS: DOCUSATE SODIUM 100 MG CAPSULE PO SCH ×2 (08:07→21:05)
[2023-03-19 08:27] LABS: GLUCOMETER DEV NAME(LOC) 5S.1B; GLUCOSE,POINT OF CARE 262 MG/DL (70-110)
[2023-03-19 08:27] LABS: GLUCOMETER DEV NAME(LOC) 5S.1B; GLUCOSE,POINT OF CARE 417 MG/DL (70-110)
[2023-03-19 11:48] VITALS: BP 129/82; PULSE 90; RESP 19; TEMP 98
[2023-03-19 16:00] VITALS: BP 154/82; PULSE 72; RESP 18; TEMP 98
[2023-03-19 17:36] LABS: GLUCOMETER DEV NAME(LOC) 5N.1C; GLUCOSE,POINT OF CARE 360 MG/DL (70-110)
[2023-03-19 20:00] VITALS: BP 145/79; PULSE 94; RESP 20; TEMP 98.1
[2023-03-19] MEDS: INSULIN GLARGINE,HUM.REC.ANLOG 100 UNITS/ML SQ SCH (21:05)
[2023-03-20 06:06] LABS: GLUCOMETER DEV NAME(LOC) 5S.2C; GLUCOSE,POINT OF CARE 396 MG/DL (70-110)
[2023-03-20 06:06] LABS: GLUCOMETER DEV NAME(LOC) 5S.2C; GLUCOSE,POINT OF CARE 400 MG/DL (70-110)
[2023-03-20 07:01] LABS: BASOPHILS % (AUTO) 1.1 % (0.0-2.0); EOSINOPHILS % (AUTO) 6.7 % (1.0-6.0); HEMOGLOBIN 7.6 g/dL (13.5-17.5); LYMPHOCYTES # (AUTO) 1.3 K/uL (1.0-4.8); LYMPHOCYTES % (AUTO) 19.4 % (22.0-44.0); MEAN CORPUSCULAR HGB CONC 33.1 G/dL (31.0-37.0); MEAN CORPUSCULAR VOLUME 78 fL (80-100); MONOCYTES # (AUTO) 0.6 K/uL (0.1-1.0); MONOCYTES % (AUTO) 8.4 % (2.0-9.0); NEUTROPHILS # (AUTO) 4.3 K/uL (1.8-7.7); NEUTROPHILS % (AUTO) 64.4 % (40.0-70.0); PLATELET COUNT (AUTO) 261 K/uL (150-450); RED BLOOD CELL COUNT(AUTO) 2.93 MIL/uL (4.50-5.90); RED CELL DISTRIBUTION WIDTH 17.5 % (11.5-14.5); WHITE BLOOD COUNT (AUTO) 6.7 K/uL (4.5-11.0)
[2023-03-20 07:01] LABS: GLUCOMETER DEV NAME(LOC) 5N.2C; GLUCOSE,POINT OF CARE 295 MG/DL (70-110)
[2023-03-20] MEDS: INSULIN LISPRO 100 UNITS/ML SQ PRN ×4 (07:01→20:42)
[2023-03-20 07:10] LABS: CALCIUM, TOTAL 8.2 mg/dL (8.8-10.5); CREATININE 5.66 mg/dL (0.60-1.30); POTASSIUM 3.8 mmol/L (3.5-5.1)
[2023-03-20 07:51] LABS: GLUCOMETER DEV NAME(LOC) 5N.1C; GLUCOSE,POINT OF CARE 197 MG/DL (70-110)
[2023-03-20 07:54] VITALS: BP 128/70; PULSE 89; RESP 20; TEMP 98
[2023-03-20] MEDS: AmLODIPine BESYLATE 5 MG TABLET PO SCH ×2 (08:04→20:31)
[2023-03-20] MEDS: CARVEDILOL 12.5 MG TABLET PO SCH ×2 (08:04→20:31)
[2023-03-20] MEDS: BUMETANIDE 0.25 MG/ML 4 ML VIAL IVP SCH ×3 (08:04→20:31)
[2023-03-20] MEDS: HydrALAZINE HCL 50 MG TABLET PO SCH ×3 (08:04→20:31)
[2023-03-20] MEDS: CITRIC ACID/SODIUM CITRATE 30 ML SOLUTION UDCUP PO SCH ×2 (08:04→20:31)
[2023-03-20] MEDS: DOCUSATE SODIUM 100 MG CAPSULE PO SCH ×2 (08:13→20:43)
[2023-03-20 11:36] VITALS: BP 135/85; PULSE 90; RESP 20; TEMP 98.2
[2023-03-20] MEDS: LISINOPRIL 10 MG TABLET PO SCH (15:08)
[2023-03-20 15:30] VITALS: BP 158/90; PULSE 91; RESP 20; TEMP 98
[2023-03-20 19:57] VITALS: BP 135/84; PULSE 93; RESP 18; TEMP 97.9
[2023-03-20 20:37] LABS: GLUCOMETER DEV NAME(LOC) 5S.1B; GLUCOSE,POINT OF CARE 290 MG/DL (70-110)
[2023-03-20 20:37] LABS: GLUCOMETER DEV NAME(LOC) 5S.1B; GLUCOSE,POINT OF CARE 250 MG/DL (70-110)
[2023-03-20] MEDS: INSULIN GLARGINE,HUM.REC.ANLOG 100 UNITS/ML SQ SCH (20:40)
[2023-03-20 21:26] LABS: GLUCOMETER DEV NAME(LOC) 5N.1C; GLUCOSE,POINT OF CARE 329 MG/DL (70-110)
[2023-03-21] VITALS (8 sets, daily range): BP systolic 122–160; BP diastolic 65–97; PULSE 81–95; RESP 18–20; TEMP 97.5–98.3
[2023-03-21] MEDS: INSULIN LISPRO 100 UNITS/ML SQ PRN ×4 (06:17→20:13)
[2023-03-21 06:56] LABS: BASOPHILS % (AUTO) 0.3 % (0.0-2.0); EOSINOPHILS % (AUTO) 6.5 % (1.0-6.0); HEMATOCRIT 23.2 % (41-53); HEMOGLOBIN 7.8 g/dL (13.5-17.5); LYMPHOCYTES # (AUTO) 1.4 K/uL (1.0-4.8); LYMPHOCYTES % (AUTO) 19.5 % (22.0-44.0); MEAN CORPUSCULAR HEMOGLOBIN 26.5 pg (26.0-34.0); MEAN CORPUSCULAR HGB CONC 33.8 G/dL (31.0-37.0); MEAN CORPUSCULAR VOLUME 78 fL (80-100); MONOCYTES # (AUTO) 0.6 K/uL (0.1-1.0); MONOCYTES % (AUTO) 8.6 % (2.0-9.0); NEUTROPHILS # (AUTO) 4.7 K/uL (1.8-7.7); NEUTROPHILS % (AUTO) 65.1 % (40.0-70.0); PLATELET COUNT (AUTO) 244 K/uL (150-450); RED BLOOD CELL COUNT(AUTO) 2.97 MIL/uL (4.50-5.90); RED CELL DISTRIBUTION WIDTH 17.9 % (11.5-14.5); WHITE BLOOD COUNT (AUTO) 7.3 K/uL (4.5-11.0)
[2023-03-21 07:16] LABS: CALCIUM, TOTAL 8.3 mg/dL (8.8-10.5); CREATININE 5.67 mg/dL (0.60-1.30); POTASSIUM 3.6 mmol/L (3.5-5.1)
[2023-03-21] MEDS ORDERED: LIDOCAINE/PF 1% 30 ML VIAL ONE (08:42)
[2023-03-21] MEDS ORDERED: CeFAZolin SODIUM 1 GM VIAL ONE (08:42)
[2023-03-21] MEDS ORDERED: SODIUM CHLORIDE 0.9% 10 ML ONE (08:42)
[2023-03-21] MEDS ORDERED: SODIUM CHLORIDE 0.9% 100 ML ONE (08:43)
[2023-03-21] MEDS ORDERED: SODIUM CL IRRIG SOLN BAG 3,000 ML IRRIG ONE (08:43)
[2023-03-21] MEDS ORDERED: HEPARIN SODIUM,PORCINE 5,000 UNITS/ML VIAL ONE (08:51)
[2023-03-21] MEDS: BUMETANIDE 0.25 MG/ML 4 ML VIAL IVP SCH ×3 (09:00→20:11)
[2023-03-21] MEDS: AmLODIPine BESYLATE 5 MG TABLET PO SCH ×2 (09:00→20:11)
[2023-03-21] MEDS: DOCUSATE SODIUM 100 MG CAPSULE PO SCH ×2 (09:00→20:11)
[2023-03-21] MEDS: CARVEDILOL 12.5 MG TABLET PO SCH ×2 (09:00→20:11)
[2023-03-21] MEDS: LISINOPRIL 10 MG TABLET PO SCH ×2 (09:00→13:51)
[2023-03-21] MEDS: CITRIC ACID/SODIUM CITRATE 30 ML SOLUTION UDCUP PO SCH ×2 (09:00→20:11)
[2023-03-21] MEDS: HydrALAZINE HCL 50 MG TABLET PO SCH ×3 (09:00→20:10)
[2023-03-21] MEDS ORDERED: RINGERS SOLUTION,LACTATED 1,000 ML IV ONE (09:08)
[2023-03-21] MEDS ORDERED: SODIUM CHLORIDE 0.9% 1,000 ML ONE ×2 (10:24→11:50)
[2023-03-21] MEDS ORDERED: FentaNYL CITRATE PF 100 MCG/2 ML VIAL IVP PRN (11:15)
[2023-03-21] MEDS ORDERED: MEPERIDINE-PF 25 MG/ML VIAL IVP PRN (11:15)
[2023-03-21] MEDS ORDERED: HYDROmorphone HCL 2 MG/ML SYRINGE IVP PRN (11:15)
[2023-03-21] MEDS ORDERED: CLON0.3T PO (12:13)
[2023-03-21] MEDS ORDERED: OxyCODONE HCL/ACETAMINOPHEN 5-325 MG TABLET PO PRN ×2 (12:15→20:45)
[2023-03-21] MEDS ORDERED: FentaNYL CITRATE PF 100 MCG/2 ML VIAL ONE (12:44)
[2023-03-21 13:56] LABS: GLUCOMETER DEV NAME(LOC) SDS.; GLUCOSE,POINT OF CARE 183 MG/DL (70-110)
[2023-03-21 16:51] LABS: GLUCOMETER DEV NAME(LOC) 5S.2C; GLUCOSE,POINT OF CARE 248 MG/DL (70-110)
[2023-03-21] MEDS: ACETAMINOPHEN 325 MG TABLET PO PRN (17:52)
[2023-03-21 18:26] LABS: GLUCOMETER DEV NAME(LOC) 5S.2C; GLUCOSE,POINT OF CARE 330 MG/DL (70-110)
[2023-03-21] MEDS ORDERED: OXYGEN THERAPY IH SCH (20:00)
[2023-03-21] MEDS: INSULIN GLARGINE,HUM.REC.ANLOG 100 UNITS/ML SQ SCH (20:12)
[2023-03-21] MEDS ORDERED: OxyCODONE HCL/ACETAMINOPHEN 5-325 MG TABLET PO ONE (20:45)
[2023-03-21 20:51] LABS: GLUCOMETER DEV NAME(LOC) 6N.1B; GLUCOSE,POINT OF CARE 359 MG/DL (70-110)
[2023-03-22] MEDS ORDERED: 0.9% SODIUM CHLORIDE 10 ML VIAL IVP ONE (02:49)
[2023-03-22] MEDS ORDERED: PROPOFOL 1% 20 ML VIAL IVP ONE (02:49)
[2023-03-22] MEDS ORDERED: CeFAZolin SODIUM 1 GM VIAL IVP ONE (02:49)
[2023-03-22] MEDS ORDERED: DEXAMETHASONE SOD PHOS 4 MG/ML VIAL IVP ONE (02:49)
[2023-03-22] MEDS ORDERED: LIDOCAINE/PF 2% 5 ML VIAL IM ONE (02:49)
[2023-03-22] MEDS ORDERED: MIDAZOLAM HCL 2 MG/2 ML VIAL IVP ONE (02:49)
[2023-03-22] MEDS ORDERED: EPHEDrine SULFATE 50 MG/ML VIAL IM ONE (02:49)
[2023-03-22] MEDS ORDERED: KETOROLAC TROMETHAMINE 60 MG/2 ML VIAL IM ONE (02:49)
[2023-03-22] MEDS ORDERED: FentaNYL CITRATE PF 100 MCG/2 ML VIAL IVP ONE (02:49)
[2023-03-22] MEDS ORDERED: HEPARIN SODIUM,PORCINE 10,000 UNITS/ML VIAL IV ONE (02:49)
[2023-03-22 04:03] VITALS: BP 151/93; PULSE 98; RESP 20; TEMP 98.6
[2023-03-22] MEDS: INSULIN LISPRO 100 UNITS/ML SQ PRN ×2 (04:09→11:42)
[2023-03-22 05:56] LABS: GLUCOMETER DEV NAME(LOC) 4E.2; GLUCOSE,POINT OF CARE 461 MG/DL (70-110)
[2023-03-22 06:03] LABS: BASOPHILS % (AUTO) 0.4 % (0.0-2.0); EOSINOPHILS % (AUTO) 0.3 % (1.0-6.0); HEMATOCRIT 26.3 % (41-53); HEMOGLOBIN 8.6 g/dL (13.5-17.5); LYMPHOCYTES # (AUTO) 1.1 K/uL (1.0-4.8); LYMPHOCYTES % (AUTO) 10.7 % (22.0-44.0); MEAN CORPUSCULAR HGB CONC 32.6 G/dL (31.0-37.0); MEAN CORPUSCULAR VOLUME 80 fL (80-100); MONOCYTES # (AUTO) 0.6 K/uL (0.1-1.0); MONOCYTES % (AUTO) 5.6 % (2.0-9.0); NEUTROPHILS # (AUTO) 8.3 K/uL (1.8-7.7); PLATELET COUNT (AUTO) 305 K/uL (150-450); RED CELL DISTRIBUTION WIDTH 18.4 % (11.5-14.5)
[2023-03-22 06:27] LABS: CALCIUM, TOTAL 8.1 mg/dL (8.8-10.5); CREATININE 6.17 mg/dL (0.60-1.30)
[2023-03-22] MEDS ORDERED: INSULIN LISPRO 100 UNITS/ML SQ ONE (06:30)
[2023-03-22 06:31] LABS: GLUCOMETER DEV NAME(LOC) 4E.2; GLUCOSE,POINT OF CARE 416 MG/DL (70-110)
[2023-03-22] MEDS: HydrALAZINE HCL 50 MG TABLET PO SCH ×2 (08:34→16:03)
[2023-03-22] MEDS: CARVEDILOL 12.5 MG TABLET PO SCH (08:34)
[2023-03-22] MEDS: LISINOPRIL 10 MG TABLET PO SCH (08:35)
[2023-03-22] MEDS: AmLODIPine BESYLATE 5 MG TABLET PO SCH (08:35)
[2023-03-22] MEDS: CITRIC ACID/SODIUM CITRATE 30 ML SOLUTION UDCUP PO SCH (08:35)
[2023-03-22] MEDS: BUMETANIDE 0.25 MG/ML 4 ML VIAL IVP SCH ×2 (08:38→16:03)
[2023-03-22] MEDS: DOCUSATE SODIUM 100 MG CAPSULE PO SCH (08:46)
[2023-03-22 08:56] VITALS: BP 149/100; PULSE 92; RESP 20; TEMP 97.9
[2023-03-22 09:55] VITALS: BP 145/77; RESP 18
[2023-03-22] MEDS ORDERED: AMLODIPINE PO (11:07)
[2023-03-22] MEDS ORDERED: BUMEX IVP (11:09)
[2023-03-22] MEDS ORDERED: CARV12 PO (11:09)
[2023-03-22] MEDS ORDERED: AMLO-257 PO (11:22)
[2023-03-22] MEDS ORDERED: [UNRECOGNIZED DRUG - CODE] IVP (11:23)
[2023-03-22 12:21] LABS: GLUCOMETER DEV NAME(LOC) 4E.2; GLUCOSE,POINT OF CARE 390 MG/DL (70-110)
[2023-03-22] MEDS ORDERED: LISINOPRIL 20 MG TABLET PO ONE (16:00)
[2023-03-22 16:05] VITALS: BP 146/86; PULSE 95; RESP 18; TEMP 98.6
[2023-03-22] MEDS ORDERED: CALCIUM ACETATE 667 MG CAPSULE PO SCH (18:00)
[2023-03-22] MEDS ORDERED: INSULIN GLARGINE,HUM.REC.ANLOG 100 UNITS/ML SQ SCH (21:00)
[2023-03-23] MEDS ORDERED: LISINOPRIL 20 MG TABLET PO SCH (09:00)
== END 2023-03-22 16:44 | DRG 673 ==
LOC: EMS 01:58 → ICU 06:54 → 5S 03-14 13:35 → 6S 03-21 19:39
PROVIDERS: ADMIT Internal Medicine; ATTEND Internal Medicine
PROC: 30233N1 Transfusion of Nonautologous Red Blood Cells into Peripheral Vein, Percutaneous Approach (ICD-10-PCS; 2023-03-13)
PROC: 5A09357 Assistance with Respiratory Ventilation, Less than 24 Consecutive Hours, Continuous Positive Airway Pressure (ICD-10-PCS; 2023-03-14)
PROC: 03180ZD Bypass Left Brachial Artery to Upper Arm Vein, Open Approach (ICD-10-PCS; principal; 2023-03-21 10:54)
DX: N17.9 Acute kidney failure, unspecified (principal); G93.41 Metabolic encephalopathy; J96.01 Acute respiratory failure with hypoxia; I50.33 Acute on chronic diastolic (congestive) heart failure; I13.2 Hypertensive heart and chronic kidney disease with heart failure and with stage 5 chronic kidney disease, or end stage renal disease; I16.1 Hypertensive emergency; E87.20 Acidosis, unspecified; N18.6 End stage renal disease; E87.5 Hyperkalemia; E78.00 Pure hypercholesterolemia, unspecified; K21.9 Gastro-esophageal reflux disease without esophagitis; E11.22 Type 2 diabetes mellitus with diabetic chronic kidney disease; Z20.822 Contact with and (suspected) exposure to COVID-19; I25.10 Atherosclerotic heart disease of native coronary artery without angina pectoris; N43.3 Hydrocele, unspecified; N44.8 Other noninflammatory disorders of the testis; E11.65 Type 2 diabetes mellitus with hyperglycemia; D63.1 Anemia in chronic kidney disease; Z79.4 Long term (current) use of insulin; Z79.899 Other long term (current) drug therapy; Z91.013 Allergy to seafood; Z88.8 Allergy status to other drugs, medicaments and biological substances; Z83.3 Family history of diabetes mellitus; Z90.49 Acquired absence of other specified parts of digestive tract
CPT/HCPCS: 36600; 71045; 74176; 76770; 76870; 80048; 80053; 80307; 81001; 81002; 81050; 82271; 82550; 82570; 82575; 82805; 82962; 83036; 83540; 83550; 83735; 83880; 83970; 84100; 84156; 84166; 84300; 84484; 84540; 85025; 85045; 86850; 86900; 86901; 86923; 87081; 93005; 93306; 93970; 94644; 94660; 99291; J0690; J0885; J1100; J1644; J1815; J1885; J1940; J2250; J2405; J2704; J3010; J3490; J7030; J7050; J7120; P9016; Q9967; 36415-L1; 36415-TC

== ENCOUNTER 2023-06-09 15:11 | Inpatient (IN) | payer OTHER ==
[~2023-06-09] VITALS: Ht 167.6 cm; Wt 94.5 kg
[~2023-06-09 15:11] MED LIST changes: +AMLO-257 PO; -AMLO-258 PO; +CARV12 PO; -CLON0.1T2 PO; -FAMO20 PO; -HYDR-4174 PO; +HYDR50TA37 PO; +[UNRECOGNIZED DRUG - CODE] IVP
[2023-06-09 16:25] LABS: BASOPHILS % (AUTO) 0.6 % (0.0-2.0); HEMATOCRIT 29.2 % (41-53); HEMOGLOBIN 9.5 g/dL (13.5-17.5); LYMPHOCYTES % (AUTO) 8.7 % (22.0-44.0); MEAN CORPUSCULAR HEMOGLOBIN 25.1 pg (26.0-34.0); MEAN CORPUSCULAR HGB CONC 32.4 G/dL (31.0-37.0); MEAN CORPUSCULAR VOLUME 78 fL (80-100); MONOCYTES # (AUTO) 0.6 K/uL (0.1-1.0); MONOCYTES % (AUTO) 5.7 % (2.0-9.0); NEUTROPHILS # (AUTO) 9.4 K/uL (1.8-7.7); PLATELET COUNT (AUTO) 258 K/uL (150-450); RED BLOOD CELL COUNT(AUTO) 3.77 MIL/uL (4.50-5.90); RED CELL DISTRIBUTION WIDTH 19.1 % (11.5-14.5); WHITE BLOOD COUNT (AUTO) 11.4 K/uL (4.5-11.0)
[2023-06-09 16:40] LABS: ANION GAP 9 mmol/L (8-16); CALCIUM, TOTAL 8.3 mg/dL (8.8-10.5); CARBON DIOXIDE 29 mmol/L (22-29); CHLORIDE 101 mmol/L (98-107); CREATININE 3.34 mg/dL (0.60-1.30); GLOMERULAR FILTR. RATE CALC 21 mL/min (>60); GLUCOSE,RANDOM 107 mg/dL (70-110); POTASSIUM 3.8 mmol/L (3.5-5.1); SODIUM SERUM 139 mmol/L (136-145); UREA NITROGEN, BLOOD 27 mg/dL (7-18)
[2023-06-09 16:43] LABS: COVID AG,FIA SOURCE NASAL SWAB
[2023-06-09 16:47] LABS: ALANINE AMINOTRANSFERASE 53 U/L (12-78); ALBUMIN 2.5 g/dL (3.4-5.0); ALKALINE PHOSPHATASE 131 U/L (46-116); ASPARTATE AMINOTRANSFERASE 68 U/L (15-37); BILIRUBIN,TOTAL 0.6 mg/dL (0.1-1.0); TOTAL PROTEIN, SERUM 6.9 g/dL (6.4-8.2)
[2023-06-09 17:15] LABS: RBC MORPHOLOGY COMMENT ABNORMAL RBC MORPH
[2023-06-09 17:17] LABS: SARS-COV2 (COVID) ANTIGEN,FIA Negative (Negative)
[2023-06-09 17:42] LABS: ALCOHOL, BLOOD (SERUM) < 3 mg/dL (0-10)
[2023-06-09 19:16] LABS: GLUCOMETER DEV NAME(LOC) ER.6; GLUCOSE,POINT OF CARE 80 MG/DL (70-110)
[2023-06-09 19:16] LABS: GLUCOMETER DEV NAME(LOC) ER.6; GLUCOSE,POINT OF CARE 66 MG/DL (70-110)
[2023-06-09 20:52] LABS: APPEARANCE,URINE CLEAR (CLEAR); BILIRUBIN,URINE NEGATIVE (NEGATIVE); COLOR,URINE LIGHT YELLOW (YELLOW); GLUCOSE, URINE (UA) 70-100 mg/dL (NEGATIVE); KETONES,URINE NEGATIVE (NEGATIVE); LEUKOCYTE ESTERASE ,URINE NEGATIVE (NEGATIVE); NITRATE,URINE NEGATIVE (NEGATIVE); OCCULT BLOOD,URINE MODERATE (NEGATIVE); PH,URINE 7.5 (5.0-8.0); PH,URINE DRUG SCREEN 7.5 (5.0-8.0); PROTEIN,URINE 300-600,SEE CONFIRM mg/dL (NEGATIVE); SPECIFIC GRAVITIY, URINE 1.011 (1.003-1.030); UROBILINOGEN,URINE <=1.0 mg/dL (<=1.0)
[2023-06-09] MEDS ORDERED: DEXTROSE 50%-WATER 25 GM/50 ML SYRINGE IVP PRN (21:00)
[2023-06-09] MEDS ORDERED: ONDANSETRON HCL 4 MG/2 ML VIAL IVP PRN (21:00)
[2023-06-09] MEDS: DOCUSATE SODIUM 100 MG CAPSULE PO SCH (21:00)
[2023-06-09] MEDS ORDERED: ACETAMINOPHEN 325 MG TABLET PO PRN (21:00)
[2023-06-09 21:01] LABS: GLUCOMETER DEV NAME(LOC) ER.6; GLUCOSE,POINT OF CARE 125 MG/DL (70-110)
[2023-06-09 21:03] LABS: ALCOHOL, URINE DRUG SCREEN NEGATIVE (NEGATIVE); AMPHET/METH SCREEN,URINE NEGATIVE (NEGATIVE); BARBITURATE SCREEN, URINE NEGATIVE (NEGATIVE); CANNABINOID SCREEN,URINE NEGATIVE (NEGATIVE); COCAINE SCREEN,URINE NEGATIVE (NEGATIVE); METHADONE SCREEN, URINE NEGATIVE (NEGATIVE); OPIATE SCREEN,URINE NEGATIVE (NEGATIVE); PHENCYCLIDINE SCREEN,URINE NEGATIVE (NEGATIVE)
[2023-06-09 21:10] LABS: SULFOSALICYLIC ACID,URINE 4+ (Negative); WBC,URINE 0-2 /HPF (0-5)
[2023-06-09 21:11] LABS: BACTERIA,URINE Few /HPF (None Seen); SQUAMOUS EPITHELIAL CELL,UR Few /LPF (None Seen)
[2023-06-09 21:17] LABS: BENZODIAZEPINES SCREEN,URINE NEGATIVE (NEGATIVE)
[2023-06-09 21:39] LABS: % IRON SATURATION 30.1 % (30-44)
[2023-06-09 21:43] LABS: TROPONIN I-HIGH SENSITIVITY 10 ng/L (<76)
[2023-06-09] MEDS: HEPARIN SODIUM,PORCINE 5,000 UNITS/ML VIAL SQ SCH (23:53)
[2023-06-10] VITALS (11 sets, daily range): BP systolic 141–178; BP diastolic 79–110; PULSE 80–94; RESP 16–18; TEMP 97.9–98.6
[2023-06-10] MEDS ORDERED: PNEUMOCOCCAL VACCINE POLYVALENT 0.5 ML SYRINGE [PPSV23] IM. ONE (03:00)
[2023-06-10 06:36] LABS: BASOPHILS % (AUTO) 0.6 % (0.0-2.0); EOSINOPHILS % (AUTO) 3.6 % (1.0-6.0); HEMATOCRIT 30.3 % (41-53); HEMOGLOBIN 9.9 g/dL (13.5-17.5); LYMPHOCYTES # (AUTO) 1.1 K/uL (1.0-4.8); LYMPHOCYTES % (AUTO) 14.7 % (22.0-44.0); MEAN CORPUSCULAR HEMOGLOBIN 25.4 pg (26.0-34.0); MEAN CORPUSCULAR HGB CONC 32.5 G/dL (31.0-37.0); MEAN CORPUSCULAR VOLUME 78 fL (80-100); MONOCYTES # (AUTO) 0.5 K/uL (0.1-1.0); NEUTROPHILS # (AUTO) 5.8 K/uL (1.8-7.7); NEUTROPHILS % (AUTO) 75.1 % (40.0-70.0); PLATELET COUNT (AUTO) 224 K/uL (150-450); RED BLOOD CELL COUNT(AUTO) 3.88 MIL/uL (4.50-5.90); RED CELL DISTRIBUTION WIDTH 19.1 % (11.5-14.5); WHITE BLOOD COUNT (AUTO) 7.7 K/uL (4.5-11.0)
[2023-06-10 06:59] LABS: CALCIUM, TOTAL 8.1 mg/dL (8.8-10.5); CREATININE 4.18 mg/dL (0.60-1.30); MAGNESIUM 2.1 mg/dL (1.80-2.40); POTASSIUM 4.2 mmol/L (3.5-5.1)
[2023-06-10 07:01] LABS: GLUCOMETER DEV NAME(LOC) 5N.1C; GLUCOSE,POINT OF CARE 268 MG/DL (70-110)
[2023-06-10] MEDS: DOCUSATE SODIUM 100 MG CAPSULE PO SCH ×2 (09:13→21:00)
[2023-06-10] MEDS: AmLODIPine BESYLATE 10 MG TABLET PO SCH (09:13)
[2023-06-10] MEDS: HEPARIN SODIUM,PORCINE 5,000 UNITS/ML VIAL SQ SCH ×2 (09:13→17:00)
[2023-06-10 11:37] LABS: GLUCOMETER DEV NAME(LOC) 5N.2C; GLUCOSE,POINT OF CARE 231 MG/DL (70-110)
[2023-06-10 12:02] LABS: GLUCOMETER DEV NAME(LOC) 5N.2C; GLUCOSE,POINT OF CARE 355 MG/DL (70-110)
[2023-06-10] MEDS ORDERED: INSULIN LISPRO 100 UNITS/ML SQ ONE (12:15)
[2023-06-10] MEDS: INSULIN LISPRO 100 UNITS/ML SQ PRN ×2 (17:29→21:37)
[2023-06-10 17:41] LABS: GLUCOMETER DEV NAME(LOC) 5N.1C; GLUCOSE,POINT OF CARE 227 MG/DL (70-110)
[2023-06-10] MEDS: HydrALAZINE HCL 50 MG TABLET PO SCH ×2 (18:42→21:25)
[2023-06-10] MEDS: BUMETANIDE 0.25 MG/ML 4 ML VIAL IVP SCH ×2 (18:43→21:25)
[2023-06-10] MEDS ORDERED: AmLODIPine BESYLATE 5 MG TABLET PO SCH (21:00)
[2023-06-10] MEDS: CARVEDILOL 12.5 MG TABLET PO SCH (21:25)
[2023-06-11] VITALS (12 sets, daily range): BP systolic 124–157; BP diastolic 72–99; PULSE 82–91; RESP 18–19; TEMP 97.3–98.4
[2023-06-11] MEDS: INSULIN LISPRO 100 UNITS/ML SQ PRN ×2 (05:48→21:47)
[2023-06-11 05:56] LABS: GLUCOMETER DEV NAME(LOC) 5S.1B; GLUCOSE,POINT OF CARE 263 MG/DL (70-110)
[2023-06-11 07:18] LABS: BASOPHILS % (AUTO) 0.9 % (0.0-2.0); EOSINOPHILS % (AUTO) 5.6 % (1.0-6.0); HEMATOCRIT 30.5 % (41-53); HEMOGLOBIN 10.2 g/dL (13.5-17.5); LYMPHOCYTES # (AUTO) 1.5 K/uL (1.0-4.8); LYMPHOCYTES % (AUTO) 24.9 % (22.0-44.0); MEAN CORPUSCULAR HEMOGLOBIN 26.1 pg (26.0-34.0); MEAN CORPUSCULAR HGB CONC 33.6 G/dL (31.0-37.0); MEAN CORPUSCULAR VOLUME 78 fL (80-100); MONOCYTES # (AUTO) 0.4 K/uL (0.1-1.0); MONOCYTES % (AUTO) 6.9 % (2.0-9.0); NEUTROPHILS # (AUTO) 3.7 K/uL (1.8-7.7); NEUTROPHILS % (AUTO) 61.7 % (40.0-70.0); PLATELET COUNT (AUTO) 217 K/uL (150-450); RED BLOOD CELL COUNT(AUTO) 3.92 MIL/uL (4.50-5.90); RED CELL DISTRIBUTION WIDTH 18.7 % (11.5-14.5)
[2023-06-11 07:26] LABS: GLUCOMETER DEV NAME(LOC) 6S.2; GLUCOSE,POINT OF CARE 267 MG/DL (70-110)
[2023-06-11 07:43] LABS: CALCIUM, TOTAL 8.8 mg/dL (8.8-10.5); CREATININE 4.59 mg/dL (0.60-1.30)
[2023-06-11] MEDS: HydrALAZINE HCL 50 MG TABLET PO SCH ×3 (08:48→21:31)
[2023-06-11] MEDS: DOCUSATE SODIUM 100 MG CAPSULE PO SCH ×3 (08:48→21:31)
[2023-06-11] MEDS: CARVEDILOL 12.5 MG TABLET PO SCH ×2 (08:48→21:31)
[2023-06-11] MEDS: AmLODIPine BESYLATE 10 MG TABLET PO SCH (08:48)
[2023-06-11] MEDS: BUMETANIDE 0.25 MG/ML 4 ML VIAL IVP SCH ×3 (08:48→21:31)
[2023-06-11] MEDS: HEPARIN SODIUM,PORCINE 5,000 UNITS/ML VIAL SQ SCH ×4 (08:48→23:46)
[2023-06-11] MEDS ORDERED: LIDOCAINE/PF 1% 2 ML VIAL IM ONE (15:54)
[2023-06-11] MEDS ORDERED: INSULIN GLARGINE,HUM.REC.ANLOG 100 UNITS/ML SQ SCH (21:00)
[2023-06-11] MEDS ORDERED: INSULIN LISPRO 100 UNITS/ML SQ ONE (22:30)
[2023-06-11 23:41] LABS: GLUCOMETER DEV NAME(LOC) 6N.2B; GLUCOSE,POINT OF CARE 472 MG/DL (70-110)
[2023-06-12 05:11] VITALS: BP 147/88; PULSE 83; RESP 20; TEMP 97.3
[2023-06-12] MEDS: INSULIN LISPRO 100 UNITS/ML SQ PRN ×2 (06:36→12:04)
[2023-06-12 07:51] LABS: GLUCOMETER DEV NAME(LOC) 6N.2B; GLUCOSE,POINT OF CARE 246 MG/DL (70-110)
[2023-06-12] MEDS: HEPARIN SODIUM,PORCINE 5,000 UNITS/ML VIAL SQ SCH (08:32)
[2023-06-12] MEDS: BUMETANIDE 0.25 MG/ML 4 ML VIAL IVP SCH (08:33)
[2023-06-12] MEDS: HydrALAZINE HCL 50 MG TABLET PO SCH (08:33)
[2023-06-12] MEDS: DOCUSATE SODIUM 100 MG CAPSULE PO SCH (08:33)
[2023-06-12] MEDS: CARVEDILOL 12.5 MG TABLET PO SCH (08:33)
[2023-06-12] MEDS: AmLODIPine BESYLATE 10 MG TABLET PO SCH (08:33)
[2023-06-12 12:16] LABS: GLUCOMETER DEV NAME(LOC) 6S.2; GLUCOSE,POINT OF CARE 297 MG/DL (70-110)
[2023-06-12] MEDS ORDERED: BUME1TAB34 PO (13:34)
[2023-06-12] MEDS ORDERED: INSLAN SQ (13:35)
[2023-06-12] MEDS ORDERED: HYDR50TA36 PO (13:38)
[2023-06-12] MEDS ORDERED: INSU100V SQ (13:44)
[2023-06-12 15:58] VITALS: BP 138/92; PULSE 88; RESP 20; TEMP 97.7
== END 2023-06-12 15:55 | DRG 637 ==
LOC: EMS 15:13 → 5S 19:47 → 6S 06-11 00:40
PROVIDERS: ADMIT Internal Medicine; ATTEND Internal Medicine
PROC: 5A1D70Z Performance of Urinary Filtration, Intermittent, Less than 6 Hours Per Day (ICD-10-PCS; principal; 2023-06-10)
PROC: 5A1D70Z Performance of Urinary Filtration, Intermittent, Less than 6 Hours Per Day (ICD-10-PCS; 2023-06-11)
DX: E11.649 Type 2 diabetes mellitus with hypoglycemia without coma (principal); G93.41 Metabolic encephalopathy; I13.2 Hypertensive heart and chronic kidney disease with heart failure and with stage 5 chronic kidney disease, or end stage renal disease; E78.00 Pure hypercholesterolemia, unspecified; K21.9 Gastro-esophageal reflux disease without esophagitis; I25.10 Atherosclerotic heart disease of native coronary artery without angina pectoris; I50.9 Heart failure, unspecified; E11.22 Type 2 diabetes mellitus with diabetic chronic kidney disease; R55 Syncope and collapse; D63.1 Anemia in chronic kidney disease; R31.29 Other microscopic hematuria; Z20.822 Contact with and (suspected) exposure to COVID-19; N18.6 End stage renal disease; Z99.2 Dependence on renal dialysis; Z83.3 Family history of diabetes mellitus; Z79.899 Other long term (current) drug therapy; Z79.4 Long term (current) use of insulin; Z88.8 Allergy status to other drugs, medicaments and biological substances; Z91.018 Allergy to other foods; Z90.49 Acquired absence of other specified parts of digestive tract
CPT/HCPCS: 80048; 80053; 80307; 81001; 81002; 82962; 83036; 83540; 83550; 83735; 84484; 85025; 85045; 87081; 87340; 90935; 93005; 99285; G0480; J1644; J1815; J3490

== ENCOUNTER 2024-04-17 14:59 | Inpatient (IN) | payer OTHER ==
[~2024-04-17] VITALS: Ht 167.6 cm; Wt 99.7 kg
[~2024-04-17 14:59] MED LIST changes: +BUME1TAB50 PO; +HEPARIN SODIUM,PORCINE 1,000 UNITS/ML VIAL IVP ONE; +HYDR50TA36 PO; -HYDR50TA37 PO; +INSLAN SQ; +INSU100V SQ; -INSU3INS3 SQ; -[UNRECOGNIZED DRUG - CODE] IVP
[2024-04-17 17:44] LABS: EOSINOPHILS % (AUTO) 5.1 % (1.0-6.0); HEMATOCRIT 34.5 % (41-53); HEMOGLOBIN 11.1 g/dL (13.5-17.5); LYMPHOCYTES # (AUTO) 1.6 K/uL (1.0-4.8); MEAN CORPUSCULAR HEMOGLOBIN 27.7 pg (26.0-34.0); MEAN CORPUSCULAR HGB CONC 32.1 G/dL (31.0-37.0); MEAN CORPUSCULAR VOLUME 86 fL (80-100); MONOCYTES # (AUTO) 0.5 K/uL (0.1-1.0); MONOCYTES % (AUTO) 6.7 % (2.0-9.0); NEUTROPHILS # (AUTO) 4.6 K/uL (1.8-7.7); NEUTROPHILS % (AUTO) 64.2 % (40.0-70.0); PLATELET COUNT (AUTO) 195 K/uL (150-450); RED CELL DISTRIBUTION WIDTH 14.9 % (11.5-14.5); WHITE BLOOD COUNT (AUTO) 7.1 K/uL (4.5-11.0)
[2024-04-17 17:57] LABS: CALCIUM, TOTAL 7.6 mg/dL (8.8-10.5); CREATININE 11.46 mg/dL (0.60-1.30); POTASSIUM 5.5 mmol/L (3.5-5.1)
[2024-04-17 18:05] LABS: ALBUMIN 3.2 g/dL (3.4-5.0); BILIRUBIN,DIRECT 0.1 mg/dL (0.00-0.20); BILIRUBIN,TOTAL 0.4 mg/dL (0.1-1.0); TOTAL PROTEIN, SERUM 6.8 g/dL (6.4-8.2)
[2024-04-17] MEDS: SODIUM ZIRCONIUM CYCLOSILICATE 5 GM POWDER PACKET PO ONE (19:30)
[2024-04-17] MEDS ORDERED: CloNIDine HCL 0.1 MG TABLET PO PRN (20:15)
[2024-04-17] MEDS ORDERED: ONDANSETRON HCL 4 MG/2 ML VIAL IVP PRN (20:15)
[2024-04-17] MEDS ORDERED: BISACODYL 10 MG RECTAL RECTAL SUPPOSITORY PR PRN (20:15)
[2024-04-17] MEDS: DOCUSATE SODIUM 100 MG CAPSULE PO SCH (21:00)
[2024-04-17 21:16] VITALS: BP 153/80; PULSE 86; RESP 18; TEMP 98; O2SAT 99
[2024-04-17] MEDS: AmLODIPine BESYLATE 10 MG TABLET PO SCH (21:23)
[2024-04-18] VITALS (13 sets, daily range): BP systolic 106–151; BP diastolic 69–105; PULSE 55–105; RESP 18–19; TEMP 97.6–98.3; O2SAT 97–98
[2024-04-18] MEDS: ASPIRIN 81 MG CHEWABLE TABLET PO SCH (08:20)
[2024-04-18] MEDS: FAMOTIDINE 20 MG TABLET PO SCH (08:20)
[2024-04-18] MEDS ORDERED: SODIUM BICARBONATE 50 MEQ/50 ML VIAL ONE (11:02)
[2024-04-18] MEDS ORDERED: LIDOCAINE/PF 1% 30 ML VIAL ONE (11:02)
[2024-04-18] MEDS ORDERED: FentaNYL CITRATE PF 100 MCG/2 ML VIAL ONE (11:16)
[2024-04-18] MEDS ORDERED: MIDAZOLAM HCL 2 MG/2 ML VIAL ONE (11:16)
[2024-04-18] MEDS ORDERED: 0.9% SODIUM CHLORIDE 10 ML SYRINGE IVP ONE (11:17)
[2024-04-18] MEDS: FentaNYL CITRATE PF 100 MCG/2 ML VIAL IVP ONE ×2 (11:47→14:07)
[2024-04-18] MEDS: LIDOCAINE 1% 30 ML/SOD BICARB 8.4% 4 ML SQ ONE (11:47)
[2024-04-18] MEDS: MIDAZOLAM HCL 2 MG/2 ML VIAL IVP ONE ×2 (11:48→14:07)
[2024-04-18 13:06] LABS: CALCIUM, TOTAL 7.6 mg/dL (8.8-10.5); CREATININE 12.56 mg/dL (0.60-1.30); POTASSIUM 4.6 mmol/L (3.5-5.1)
[2024-04-18] MEDS: SODIUM CHLORIDE 0.9% 500 ML IV ONE (14:08)
[2024-04-18] MEDS ORDERED: SODIUM CHLORIDE 0.9% 2,000 ML ONE (15:35)
[2024-04-18] MEDS: INSULIN LISPRO 100 UNITS/ML SQ PRN (17:16)
[2024-04-18] MEDS: HEPARIN SODIUM,PORCINE 1,000 UNITS/ML VIAL IVCATH ONE ×2 (19:38)
[2024-04-19] VITALS (13 sets, daily range): BP systolic 105–151; BP diastolic 56–107; PULSE 89–100; RESP 6–19; TEMP 97.6–98.3; O2SAT 96–99
[2024-04-19] MEDS: ACETAMINOPHEN 325 MG TABLET PO PRN (01:03)
[2024-04-19 07:29] LABS: CALCIUM, TOTAL 7.6 mg/dL (8.8-10.5); CREATININE 7.89 mg/dL (0.60-1.30); POTASSIUM 3.8 mmol/L (3.5-5.1)
[2024-04-19] MEDS ORDERED: HEPARIN SODIUM,PORCINE 1,000 UNITS/ML VIAL IVP ONE (12:00)
[2024-04-19 21:21] LABS: GLUCOMETER DEV NAME(LOC) 5S.2D; GLUCOSE,POINT OF CARE 257 MG/DL (70-110)
[2024-04-19 21:21] LABS: GLUCOMETER DEV NAME(LOC) 5S.2D; GLUCOSE,POINT OF CARE 247 MG/DL (70-110)
[2024-04-19 21:21] LABS: GLUCOMETER DEV NAME(LOC) 5S.2D; GLUCOSE,POINT OF CARE 107 MG/DL (70-110)
[2024-04-19] MEDS: INSULIN LISPRO 100 UNITS/ML SQ ONE (21:34)
[2024-04-19] MEDS: INSULIN GLARGINE,HUM.REC.ANLOG 100 UNITS/ML SQ ONE (21:35)
[2024-04-20 00:33] VITALS: BP 130/75; PULSE 95; RESP 18; TEMP 98; O2SAT 97
[2024-04-20 04:55] VITALS: BP 123/77; PULSE 99; RESP 16; TEMP 98.2; O2SAT 98
[2024-04-20 07:49] VITALS: BP 119/72; PULSE 90; RESP 18; TEMP 98.2; O2SAT 98
[2024-04-20 09:44] LABS: BASOPHILS % (AUTO) 0.8 % (0.0-2.0); EOSINOPHILS % (AUTO) 3.2 % (1.0-6.0); HEMOGLOBIN 11.7 g/dL (13.5-17.5); LYMPHOCYTES # (AUTO) 1.9 K/uL (1.0-4.8); LYMPHOCYTES % (AUTO) 26.8 % (22.0-44.0); MEAN CORPUSCULAR HGB CONC 32.4 G/dL (31.0-37.0); MEAN CORPUSCULAR VOLUME 86 fL (80-100); MONOCYTES # (AUTO) 0.7 K/uL (0.1-1.0); MONOCYTES % (AUTO) 9.9 % (2.0-9.0); NEUTROPHILS # (AUTO) 4.3 K/uL (1.8-7.7); NEUTROPHILS % (AUTO) 59.3 % (40.0-70.0); PLATELET COUNT (AUTO) 172 K/uL (150-450); RED BLOOD CELL COUNT(AUTO) 4.17 MIL/uL (4.50-5.90); RED CELL DISTRIBUTION WIDTH 14.4 % (11.5-14.5); WHITE BLOOD COUNT (AUTO) 7.2 K/uL (4.5-11.0)
[2024-04-20 09:54] LABS: CALCIUM, TOTAL 8.4 mg/dL (8.8-10.5); CREATININE 7.73 mg/dL (0.60-1.30); POTASSIUM 3.7 mmol/L (3.5-5.1)
[2024-04-20 12:00] VITALS: BP 122/76; PULSE 88; RESP 18; TEMP 98; O2SAT 97
[2024-04-20 16:34] VITALS: BP 137/90; PULSE 87; RESP 18; TEMP 97.8; O2SAT 99
[2024-04-20 20:07] VITALS: BP 131/77; PULSE 83; RESP 19; TEMP 97.5; O2SAT 98
[2024-04-20] MEDS: INSULIN GLARGINE,HUM.REC.ANLOG 100 UNITS/ML SQ SCH (21:28)
[2024-04-21] VITALS (15 sets, daily range): BP systolic 90–132; BP diastolic 62–93; PULSE 87–95; RESP 15–19; TEMP 96.4–98.4; O2SAT 95–99
[2024-04-21 11:28] LABS: GLUCOMETER DEV NAME(LOC) 5N.1D; GLUCOSE,POINT OF CARE 315 MG/DL (70-110)
[2024-04-21 11:28] LABS: GLUCOMETER DEV NAME(LOC) 5N.1D; GLUCOSE,POINT OF CARE 322 MG/DL (70-110)
[2024-04-21 11:28] LABS: GLUCOMETER DEV NAME(LOC) 5N.1D; GLUCOSE,POINT OF CARE 524 MG/DL (70-110)
[2024-04-21 11:28] LABS: GLUCOMETER DEV NAME(LOC) 5N.1D; GLUCOSE,POINT OF CARE 184 MG/DL (70-110)
[2024-04-21 11:28] LABS: GLUCOMETER DEV NAME(LOC) 5N.1D; GLUCOSE,POINT OF CARE 302 MG/DL (70-110)
[2024-04-21 11:28] LABS: GLUCOMETER DEV NAME(LOC) 5N.1D; GLUCOSE,POINT OF CARE 172 MG/DL (70-110)
[2024-04-21 11:28] LABS: GLUCOMETER DEV NAME(LOC) 5N.1D; GLUCOSE,POINT OF CARE 262 MG/DL (70-110)
[2024-04-21] MEDS: ZOLPIDEM TARTRATE 5 MG TABLET PO PRN (20:45)
[2024-04-21 21:26] LABS: GLUCOMETER DEV NAME(LOC) 5S.2D; GLUCOSE,POINT OF CARE 268 MG/DL (70-110)
[2024-04-21 21:26] LABS: GLUCOMETER DEV NAME(LOC) 5S.2D; GLUCOSE,POINT OF CARE 329 MG/DL (70-110)
[2024-04-21 21:26] LABS: GLUCOMETER DEV NAME(LOC) 5S.2D; GLUCOSE,POINT OF CARE 298 MG/DL (70-110)
[2024-04-21 21:26] LABS: GLUCOMETER DEV NAME(LOC) 5S.2D; GLUCOSE,POINT OF CARE 120 MG/DL (70-110)
[2024-04-22] VITALS: BP 115/62; PULSE 99; RESP 18; TEMP 98.2; O2SAT 95
[2024-04-22 04:00] VITALS: BP 92/58; PULSE 92; RESP 18; TEMP 98; O2SAT 95
[2024-04-22 08:44] VITALS: BP 114/76; PULSE 88; RESP 19; TEMP 98.1; O2SAT 99
[2024-04-22 11:36] VITALS: BP 121/75; PULSE 89; RESP 18; TEMP 98; O2SAT 98
[2024-04-22 15:50] VITALS: BP 118/79; PULSE 86; RESP 19; TEMP 98.2; O2SAT 98
[2024-04-22 21:00] VITALS: BP 110/79; PULSE 91; RESP 18; TEMP 97.9; O2SAT 98
[2024-04-23] VITALS: BP 110/84; PULSE 91; RESP 18; TEMP 97.9; O2SAT 99
[2024-04-23 04:55] VITALS: BP 111/77; PULSE 84; RESP 18; TEMP 98.3; O2SAT 98
[2024-04-23] MEDS: DEXTROSE 50%-WATER 25 GM/50 ML SYRINGE IVP PRN (06:20)
[2024-04-23 08:00] VITALS: BP 134/85; PULSE 85; RESP 18; TEMP 97.7; O2SAT 99
[2024-04-23 11:53] VITALS: BP 123/74; PULSE 85; RESP 18; TEMP 97.8; O2SAT 100
[2024-04-23 16:28] VITALS: BP 103/51; PULSE 89; RESP 18; TEMP 97.8; O2SAT 97
[2024-04-23 20:30] VITALS: BP 113/68; PULSE 72; RESP 16; TEMP 98.1; O2SAT 98
[2024-04-24] VITALS (16 sets, daily range): BP systolic 102–158; BP diastolic 43–103; PULSE 80–93; RESP 17–18; TEMP 96.2–98.4; O2SAT 97–100
[2024-04-24 01:46] LABS: GLUCOMETER DEV NAME(LOC) 5N.1D; GLUCOSE,POINT OF CARE 143 MG/DL (70-110)
[2024-04-24 01:46] LABS: GLUCOMETER DEV NAME(LOC) 5N.1D; GLUCOSE,POINT OF CARE 196 MG/DL (70-110)
[2024-04-24 01:46] LABS: GLUCOMETER DEV NAME(LOC) 5N.1D; GLUCOSE,POINT OF CARE 56 MG/DL (70-110)
[2024-04-24 01:46] LABS: GLUCOMETER DEV NAME(LOC) 5N.1D; GLUCOSE,POINT OF CARE 48 MG/DL (70-110)
[2024-04-24 01:46] LABS: GLUCOMETER DEV NAME(LOC) 5N.1D; GLUCOSE,POINT OF CARE 115 MG/DL (70-110)
[2024-04-24 05:46] LABS: GLUCOMETER DEV NAME(LOC) 5S.1D; GLUCOSE,POINT OF CARE 109 MG/DL (70-110)
[2024-04-24 06:27] LABS: BASOPHILS % (AUTO) 0.7 % (0.0-2.0); HEMATOCRIT 33.3 % (41-53); HEMOGLOBIN 10.8 g/dL (13.5-17.5); LYMPHOCYTES % (AUTO) 31.1 % (22.0-44.0); MEAN CORPUSCULAR HEMOGLOBIN 27.8 pg (26.0-34.0); MEAN CORPUSCULAR HGB CONC 32.3 G/dL (31.0-37.0); MEAN CORPUSCULAR VOLUME 86 fL (80-100); MONOCYTES # (AUTO) 0.5 K/uL (0.1-1.0); MONOCYTES % (AUTO) 8.6 % (2.0-9.0); NEUTROPHILS # (AUTO) 3.4 K/uL (1.8-7.7); NEUTROPHILS % (AUTO) 53.6 % (40.0-70.0); PLATELET COUNT (AUTO) 191 K/uL (150-450); RED BLOOD CELL COUNT(AUTO) 3.87 MIL/uL (4.50-5.90); RED CELL DISTRIBUTION WIDTH 14.4 % (11.5-14.5); WHITE BLOOD COUNT (AUTO) 6.3 K/uL (4.5-11.0)
[2024-04-24 06:58] LABS: CALCIUM, TOTAL 7.7 mg/dL (8.8-10.5); CREATININE 12.34 mg/dL (0.60-1.30); POTASSIUM 4.1 mmol/L (3.5-5.1)
[2024-04-24] MEDS ORDERED: HEPARIN SODIUM,PORCINE 1,000 UNITS/ML VIAL IVP ONE (12:00)
[2024-04-24] MEDS: SEVELAMER CARBONATE 800 MG TABLET PO SCH (12:18)
[2024-04-24] MEDS ORDERED: SODIUM CHLORIDE 0.9% 1,000 ML ONE (12:51)
[2024-04-24] MEDS: HEPARIN SODIUM,PORCINE 1,000 UNITS/ML VIAL IVP PRN ×2 (18:12→18:14)
[2024-04-24 18:26] LABS: GLUCOMETER DEV NAME(LOC) 5S.1D; GLUCOSE,POINT OF CARE 140 MG/DL (70-110)
[2024-04-24 20:21] LABS: GLUCOMETER DEV NAME(LOC) 5S.2D; GLUCOSE,POINT OF CARE 112 MG/DL (70-110)
[2024-04-25 00:20] VITALS: BP 114/94; PULSE 90; RESP 16; TEMP 98.2; O2SAT 100
[2024-04-25 04:28] VITALS: BP 117/92; PULSE 85; RESP 17; TEMP 97.8; O2SAT 99
[2024-04-25 04:56] LABS: GLUCOMETER DEV NAME(LOC) 5S.2D; GLUCOSE,POINT OF CARE 318 MG/DL (70-110)
[2024-04-25 07:26] LABS: GLUCOMETER DEV NAME(LOC) 5N.2C; GLUCOSE,POINT OF CARE 320 MG/DL (70-110)
[2024-04-25 07:26] LABS: GLUCOMETER DEV NAME(LOC) 5N.2C; GLUCOSE,POINT OF CARE 118 MG/DL (70-110)
[2024-04-25 07:26] LABS: GLUCOMETER DEV NAME(LOC) 5N.2C; GLUCOSE,POINT OF CARE 242 MG/DL (70-110)
[2024-04-25 07:26] LABS: GLUCOMETER DEV NAME(LOC) 5N.2C; GLUCOSE,POINT OF CARE 307 MG/DL (70-110)
[2024-04-25 07:26] LABS: GLUCOMETER DEV NAME(LOC) 5N.2C; GLUCOSE,POINT OF CARE 227 MG/DL (70-110)
[2024-04-25 07:26] LABS: GLUCOMETER DEV NAME(LOC) 5N.2C; GLUCOSE,POINT OF CARE 272 MG/DL (70-110)
[2024-04-25 07:27] LABS: GLUCOMETER DEV NAME(LOC) 5N.2C; GLUCOSE,POINT OF CARE 91 MG/DL (70-110)
[2024-04-25 08:41] VITALS: BP 131/92; PULSE 88; RESP 18; O2SAT 98
[2024-04-25 11:55] VITALS: BP 133/89; PULSE 88; RESP 18; TEMP 98; O2SAT 98
[2024-04-25 16:12] VITALS: BP 132/82; PULSE 86; RESP 18; TEMP 97.6; O2SAT 98
[2024-04-25 17:41] LABS: GLUCOMETER DEV NAME(LOC) 5N.2C; GLUCOSE,POINT OF CARE 158 MG/DL (70-110)
[2024-04-25 20:01] VITALS: BP 143/89; PULSE 81; RESP 18; TEMP 98; O2SAT 97
[2024-04-26] VITALS (15 sets, daily range): BP systolic 116–150; BP diastolic 66–98; PULSE 64–102; RESP 17–20; TEMP 97.8–98.3; O2SAT 97–99
[2024-04-26 01:01] LABS: GLUCOMETER DEV NAME(LOC) 5N.2C; GLUCOSE,POINT OF CARE 239 MG/DL (70-110)
[2024-04-26 01:01] LABS: GLUCOMETER DEV NAME(LOC) 5S.2D; GLUCOSE,POINT OF CARE 272 MG/DL (70-110)
[2024-04-26 06:09] LABS: EOSINOPHILS % (AUTO) 5.4 % (1.0-6.0); HEMATOCRIT 31.5 % (41-53); HEMOGLOBIN 10.3 g/dL (13.5-17.5); LYMPHOCYTES % (AUTO) 29.6 % (22.0-44.0); MEAN CORPUSCULAR HEMOGLOBIN 27.8 pg (26.0-34.0); MEAN CORPUSCULAR HGB CONC 32.6 G/dL (31.0-37.0); MEAN CORPUSCULAR VOLUME 85 fL (80-100); MONOCYTES # (AUTO) 0.6 K/uL (0.1-1.0); MONOCYTES % (AUTO) 8.5 % (2.0-9.0); NEUTROPHILS # (AUTO) 3.7 K/uL (1.8-7.7); NEUTROPHILS % (AUTO) 55.5 % (40.0-70.0); PLATELET COUNT (AUTO) 208 K/uL (150-450); RED BLOOD CELL COUNT(AUTO) 3.69 MIL/uL (4.50-5.90); RED CELL DISTRIBUTION WIDTH 14.6 % (11.5-14.5); WHITE BLOOD COUNT (AUTO) 6.7 K/uL (4.5-11.0)
[2024-04-26 06:20] LABS: GLUCOMETER DEV NAME(LOC) 5S.2D; GLUCOSE,POINT OF CARE 122 MG/DL (70-110)
[2024-04-26 06:30] LABS: CALCIUM, TOTAL 7.8 mg/dL (8.8-10.5); CREATININE 10.7 mg/dL (0.60-1.30); POTASSIUM 4.1 mmol/L (3.5-5.1)
[2024-04-26 12:41] LABS: GLUCOMETER DEV NAME(LOC) 5N.2C; GLUCOSE,POINT OF CARE 109 MG/DL (70-110)
[2024-04-27] VITALS: BP 96/75; PULSE 91; RESP 20; TEMP 98.6; O2SAT 100
[2024-04-27 04:52] VITALS: BP 107/70; PULSE 84; RESP 20; TEMP 98; O2SAT 99
[2024-04-27 09:00] VITALS: BP 95/68; PULSE 68; RESP 14; TEMP 98.2; O2SAT 98
[2024-04-27 11:46] LABS: GLUCOMETER DEV NAME(LOC) 5N.2C; GLUCOSE,POINT OF CARE 240 MG/DL (70-110)
[2024-04-27 11:46] LABS: GLUCOMETER DEV NAME(LOC) 5N.2C; GLUCOSE,POINT OF CARE 154 MG/DL (70-110)
[2024-04-27 11:51] LABS: GLUCOMETER DEV NAME(LOC) 5S.2D; GLUCOSE,POINT OF CARE 196 MG/DL (70-110)
[2024-04-27] MEDS ORDERED: HEPARIN SODIUM,PORCINE 1,000 UNITS/ML VIAL IVP ONE (12:19)
[2024-04-27 12:31] LABS: GLUCOMETER DEV NAME(LOC) 5S.2D; GLUCOSE,POINT OF CARE 207 MG/DL (70-110)
[2024-04-27 16:00] VITALS: BP 122/94; PULSE 83; RESP 14; TEMP 97.7; O2SAT 99
[2024-04-27 17:30] LABS: GLUCOMETER DEV NAME(LOC) 5S.2D; GLUCOSE,POINT OF CARE 282 MG/DL (70-110)
[2024-04-27 20:20] VITALS: BP 114/79; PULSE 79; RESP 17; TEMP 97.8; O2SAT 100
[2024-04-27 21:06] LABS: GLUCOMETER DEV NAME(LOC) 5S.2D; GLUCOSE,POINT OF CARE 272 MG/DL (70-110)
[2024-04-28] VITALS (13 sets, daily range): BP systolic 92–148; BP diastolic 63–97; PULSE 83–102; RESP 18–19; TEMP 96.2–98; O2SAT 96–100
[2024-04-28 06:33] LABS: BASOPHILS % (AUTO) 0.9 % (0.0-2.0); EOSINOPHILS % (AUTO) 5.8 % (1.0-6.0); HEMATOCRIT 32.7 % (41-53); HEMOGLOBIN 10.9 g/dL (13.5-17.5); LYMPHOCYTES # (AUTO) 2.2 K/uL (1.0-4.8); LYMPHOCYTES % (AUTO) 34.5 % (22.0-44.0); MEAN CORPUSCULAR HEMOGLOBIN 28.2 pg (26.0-34.0); MEAN CORPUSCULAR HGB CONC 33.2 G/dL (31.0-37.0); MEAN CORPUSCULAR VOLUME 85 fL (80-100); MONOCYTES # (AUTO) 0.6 K/uL (0.1-1.0); MONOCYTES % (AUTO) 9.9 % (2.0-9.0); NEUTROPHILS # (AUTO) 3.1 K/uL (1.8-7.7); NEUTROPHILS % (AUTO) 48.9 % (40.0-70.0); PLATELET COUNT (AUTO) 237 K/uL (150-450); RED BLOOD CELL COUNT(AUTO) 3.84 MIL/uL (4.50-5.90); RED CELL DISTRIBUTION WIDTH 14.2 % (11.5-14.5); WHITE BLOOD COUNT (AUTO) 6.3 K/uL (4.5-11.0)
[2024-04-28 06:44] LABS: POTASSIUM 4.1 mmol/L (3.5-5.1)
[2024-04-28 06:56] LABS: MAGNESIUM 2.6 mg/dL (1.80-2.40); PHOSPHORUS 5.6 mg/dL (2.5-4.9)
[2024-04-28 06:58] LABS: CALCIUM, TOTAL 8.2 mg/dL (8.8-10.5); CREATININE 9.88 mg/dL (0.60-1.30)
[2024-04-28] MEDS ORDERED: SODIUM CHLORIDE 0.9% 1,000 ML ONE (10:22)
[2024-04-28 11:20] LABS: GLUCOMETER DEV NAME(LOC) 5S.2D; GLUCOSE,POINT OF CARE 230 MG/DL (70-110)
[2024-04-28 11:20] LABS: GLUCOMETER DEV NAME(LOC) 5S.2D; GLUCOSE,POINT OF CARE 46 MG/DL (70-110)
[2024-04-28 11:20] LABS: GLUCOMETER DEV NAME(LOC) 5S.2D; GLUCOSE,POINT OF CARE 48 MG/DL (70-110)
[2024-04-28] MEDS ORDERED: HEPARIN SODIUM,PORCINE 1,000 UNITS/ML VIAL ONE (12:00)
[2024-04-28] MEDS ORDERED: HEPARIN SODIUM,PORCINE 1,000 UNITS/ML VIAL IVCATH ONE ×2 (13:45)
[2024-04-28 14:35] LABS: GLUCOMETER DEV NAME(LOC) 5N.2C; GLUCOSE,POINT OF CARE 287 MG/DL (70-110)
[2024-04-29 00:03] VITALS: BP 137/78; PULSE 88; RESP 18; TEMP 98.2; O2SAT 100
[2024-04-29 05:09] VITALS: BP 107/74; PULSE 86; RESP 18; TEMP 97.8; O2SAT 100
[2024-04-29 06:16] LABS: GLUCOMETER DEV NAME(LOC) 5N.2C; GLUCOSE,POINT OF CARE 268 MG/DL (70-110)
[2024-04-29 06:16] LABS: GLUCOMETER DEV NAME(LOC) 5N.2C; GLUCOSE,POINT OF CARE 291 MG/DL (70-110)
[2024-04-29 08:00] VITALS: BP 111/69; PULSE 81; RESP 18; TEMP 97.9; O2SAT 100
[2024-04-29 12:24] VITALS: BP 142/84; PULSE 81; RESP 18; TEMP 97.5; O2SAT 100
[2024-04-29 16:21] LABS: GLUCOMETER DEV NAME(LOC) 5S.2D; GLUCOSE,POINT OF CARE 188 MG/DL (70-110)
[2024-04-29 16:21] LABS: GLUCOMETER DEV NAME(LOC) 5S.2D; GLUCOSE,POINT OF CARE 145 MG/DL (70-110)
[2024-04-29 17:00] VITALS: BP 144/97; PULSE 86; RESP 18; TEMP 97.5; O2SAT 100
[2024-04-29 20:00] VITALS: BP 132/88; PULSE 87; RESP 16; TEMP 98; O2SAT 99
[2024-04-29] MEDS: HydrOXYzine HCL 25 MG TABLET PO ONE (21:34)
[2024-04-30 00:32] VITALS: BP 140/88; PULSE 83; RESP 16; TEMP 97.8; O2SAT 99
[2024-04-30 05:56] VITALS: BP 107/70; PULSE 80; RESP 18; TEMP 97.7; O2SAT 98
[2024-04-30 08:20] VITALS: BP 99/63; PULSE 82; RESP 20; TEMP 97.8; O2SAT 100
[2024-04-30 11:31] LABS: GLUCOMETER DEV NAME(LOC) 5S.2D; GLUCOSE,POINT OF CARE 205 MG/DL (70-110)
[2024-04-30 11:31] LABS: GLUCOMETER DEV NAME(LOC) 5S.2D; GLUCOSE,POINT OF CARE 209 MG/DL (70-110)
[2024-04-30 11:31] LABS: GLUCOMETER DEV NAME(LOC) 5S.2D; GLUCOSE,POINT OF CARE 253 MG/DL (70-110)
[2024-04-30 12:15] VITALS: BP 136/90; PULSE 85; RESP 18; TEMP 97.9; O2SAT 98
[2024-04-30 16:50] VITALS: BP 145/97; PULSE 85; RESP 18; TEMP 98.2; O2SAT 96
[2024-04-30 20:06] VITALS: BP 130/81; PULSE 86; RESP 18; TEMP 98.6; O2SAT 98
[2024-05-01] VITALS (14 sets, daily range): BP systolic 120–158; BP diastolic 70–101; PULSE 72–96; RESP 18–20; TEMP 97.1–98.6; O2SAT 78–100
[2024-05-01 07:12] LABS: BASOPHILS % (AUTO) 0.6 % (0.0-2.0); EOSINOPHILS % (AUTO) 6.9 % (1.0-6.0); HEMATOCRIT 29.7 % (41-53); LYMPHOCYTES # (AUTO) 1.9 K/uL (1.0-4.8); LYMPHOCYTES % (AUTO) 30.2 % (22.0-44.0); MEAN CORPUSCULAR HEMOGLOBIN 28.4 pg (26.0-34.0); MEAN CORPUSCULAR HGB CONC 33.5 G/dL (31.0-37.0); MEAN CORPUSCULAR VOLUME 85 fL (80-100); MONOCYTES # (AUTO) 0.4 K/uL (0.1-1.0); NEUTROPHILS # (AUTO) 3.6 K/uL (1.8-7.7); NEUTROPHILS % (AUTO) 56.3 % (40.0-70.0); PLATELET COUNT (AUTO) 256 K/uL (150-450); RED BLOOD CELL COUNT(AUTO) 3.51 MIL/uL (4.50-5.90); RED CELL DISTRIBUTION WIDTH 13.9 % (11.5-14.5); WHITE BLOOD COUNT (AUTO) 6.4 K/uL (4.5-11.0)
[2024-05-01 07:29] LABS: CALCIUM, TOTAL 8.3 mg/dL (8.8-10.5); CREATININE 10.98 mg/dL (0.60-1.30)
[2024-05-01 07:34] LABS: PROTHROMBIN TIME 10.7 SEC (9.4-11.6)
[2024-05-01] MEDS ORDERED: LIDOCAINE/PF 1% 30 ML VIAL ONE (08:01)
[2024-05-01] MEDS ORDERED: IOHEXOL 300 MG/ML 50 ML VIAL ONE (08:01)
[2024-05-01] MEDS ORDERED: SODIUM BICARBONATE 50 MEQ/50 ML VIAL ONE (08:01)
[2024-05-01] MEDS ORDERED: DiphenhydrAMINE HCL 50 MG/ML VIAL ONE (10:23)
[2024-05-01] MEDS ORDERED: IOHEXOL 300 MG/ML 100 ML VIAL ONE (10:25)
[2024-05-01] MEDS ORDERED: MIDAZOLAM HCL 2 MG/2 ML VIAL ONE (10:40)
[2024-05-01] MEDS ORDERED: FentaNYL CITRATE PF 100 MCG/2 ML VIAL ONE (10:40)
[2024-05-01] MEDS: IOHEXOL 300 MG/ML 100 ML VIAL ICOR ONE (10:53)
[2024-05-01] MEDS: DiphenhydrAMINE HCL 50 MG/ML VIAL IVP ONE (10:53)
[2024-05-01] MEDS: FentaNYL CITRATE PF 100 MCG/2 ML VIAL IVP ONE ×3 (10:54→11:49)
[2024-05-01] MEDS: MIDAZOLAM HCL 2 MG/2 ML VIAL IVP ONE ×2 (10:54→11:09)
[2024-05-01] MEDS: ALTEPLASE 2 MG VIAL/STERILE WATER IVCATH ONE ×2 (10:54→11:26)
[2024-05-01] MEDS: HEPARIN SODIUM,PORCINE 1,000 UNITS/ML 10 ML VIAL IVP ONE (10:55)
[2024-05-01] MEDS: IOHEXOL 300 MG/ML 50 ML VIAL ICOR ONE (10:58)
[2024-05-01] MEDS: LIDOCAINE 1% 30 ML/SOD BICARB 8.4% 4 ML SQ ONE (11:09)
[2024-05-01 20:05] LABS: CHOL/HDL RATIO 2.4 (4.2-7.3)
[2024-05-01] MEDS: LIDOCAINE/PF 1% 2 ML VIAL ID PRN (22:49)
[2024-05-02] VITALS (11 sets, daily range): BP systolic 120–155; BP diastolic 65–104; PULSE 91–103; RESP 18–19; TEMP 97.9–98.2; O2SAT 99–100
[2024-05-02] MEDS ORDERED: SODIUM CHLORIDE 0.9% 2,000 ML ONE (10:34)
[2024-05-02] MEDS ORDERED: LIDOCAINE/PF 1% 2 ML VIAL IV ONE (18:01)
[2024-05-04 23:46] LABS: GLUCOMETER DEV NAME(LOC) 5N.2C; GLUCOSE,POINT OF CARE 104 MG/DL (70-110)
[2024-05-04 23:46] LABS: GLUCOMETER DEV NAME(LOC) 5S.2D; GLUCOSE,POINT OF CARE 212 MG/DL (70-110)
[2024-05-04 23:46] LABS: GLUCOMETER DEV NAME(LOC) 5S.2D; GLUCOSE,POINT OF CARE 212 MG/DL (70-110)
[2024-05-04 23:46] LABS: GLUCOMETER DEV NAME(LOC) 5N.2C; GLUCOSE,POINT OF CARE 147 MG/DL (70-110)
[2024-05-04 23:46] LABS: GLUCOMETER DEV NAME(LOC) 5N.2C; GLUCOSE,POINT OF CARE 353 MG/DL (70-110)
[2024-05-05 01:16] LABS: GLUCOMETER DEV NAME(LOC) 5N.1D; GLUCOSE,POINT OF CARE 221 MG/DL (70-110)
[2024-05-05 01:16] LABS: GLUCOMETER DEV NAME(LOC) 5N.1D; GLUCOSE,POINT OF CARE 132 MG/DL (70-110)
[2024-05-05 01:16] LABS: GLUCOMETER DEV NAME(LOC) 5N.1D; GLUCOSE,POINT OF CARE 263 MG/DL (70-110)
== END 2024-05-02 20:20 | DRG 252 ==
LOC: EMS 14:59 → EDH 20:15 → 5S 20:59
PROVIDERS: ADMIT Internal Medicine; ATTEND Internal Medicine
PROC: 5A1D70Z Performance of Urinary Filtration, Intermittent, Less than 6 Hours Per Day (ICD-10-PCS; 2024-04-18)
PROC: 02HV33Z Insertion of Infusion Device into Superior Vena Cava, Percutaneous Approach (ICD-10-PCS; 2024-04-18)
PROC: B5181ZA Fluoroscopy of Superior Vena Cava using Low Osmolar Contrast, Guidance (ICD-10-PCS; 2024-04-18)
PROC: B548ZZA Ultrasonography of Superior Vena Cava, Guidance (ICD-10-PCS; 2024-04-18)
PROC: 5A1D70Z Performance of Urinary Filtration, Intermittent, Less than 6 Hours Per Day (ICD-10-PCS; 2024-04-19)
PROC: 5A1D70Z Performance of Urinary Filtration, Intermittent, Less than 6 Hours Per Day (ICD-10-PCS; 2024-04-21)
PROC: 5A1D70Z Performance of Urinary Filtration, Intermittent, Less than 6 Hours Per Day (ICD-10-PCS; 2024-04-24)
PROC: 5A1D70Z Performance of Urinary Filtration, Intermittent, Less than 6 Hours Per Day (ICD-10-PCS; 2024-04-26)
PROC: 5A1D70Z Performance of Urinary Filtration, Intermittent, Less than 6 Hours Per Day (ICD-10-PCS; 2024-04-28)
PROC: 057A3DZ Dilation of Left Brachial Vein with Intraluminal Device, Percutaneous Approach (ICD-10-PCS; principal; 2024-05-01)
PROC: 05CA3ZZ Extirpation of Matter from Left Brachial Vein, Percutaneous Approach (ICD-10-PCS; 2024-05-01)
PROC: 05CF3ZZ Extirpation of Matter from Left Cephalic Vein, Percutaneous Approach (ICD-10-PCS; 2024-05-01)
PROC: 057F3DZ Dilation of Left Cephalic Vein with Intraluminal Device, Percutaneous Approach (ICD-10-PCS; 2024-05-01)
PROC: 5A1D70Z Performance of Urinary Filtration, Intermittent, Less than 6 Hours Per Day (ICD-10-PCS; 2024-05-01)
PROC: 3E03317 Introduction of Other Thrombolytic into Peripheral Vein, Percutaneous Approach (ICD-10-PCS; 2024-05-01)
PROC: 5A1D70Z Performance of Urinary Filtration, Intermittent, Less than 6 Hours Per Day (ICD-10-PCS; 2024-05-02)
DX: T82.868A Thrombosis due to vascular prosthetic devices, implants and grafts, initial encounter (principal); N18.6 End stage renal disease; E87.1 Hypo-osmolality and hyponatremia; I13.2 Hypertensive heart and chronic kidney disease with heart failure and with stage 5 chronic kidney disease, or end stage renal disease; E87.5 Hyperkalemia; E11.22 Type 2 diabetes mellitus with diabetic chronic kidney disease; E66.01 Morbid (severe) obesity due to excess calories; Z79.4 Long term (current) use of insulin; D63.1 Anemia in chronic kidney disease; E11.65 Type 2 diabetes mellitus with hyperglycemia; E78.00 Pure hypercholesterolemia, unspecified; E83.39 Other disorders of phosphorus metabolism; I25.10 Atherosclerotic heart disease of native coronary artery without angina pectoris; K21.9 Gastro-esophageal reflux disease without esophagitis; N25.0 Renal osteodystrophy; I50.9 Heart failure, unspecified; E11.649 Type 2 diabetes mellitus with hypoglycemia without coma; J45.909 Unspecified asthma, uncomplicated; Y83.8 Other surgical procedures as the cause of abnormal reaction of the patient, or of later complication, without mention of misadventure at the time of the procedure; Z99.2 Dependence on renal dialysis; Z90.49 Acquired absence of other specified parts of digestive tract; Z88.8 Allergy status to other drugs, medicaments and biological substances; Z79.899 Other long term (current) drug therapy; Z83.3 Family history of diabetes mellitus; Y92.89 Other specified places as the place of occurrence of the external cause
CPT/HCPCS: 36147; 36245; 36556; 36870; 37205; 75978; 76000; 76001; 80048; 80061; 80076; 82962; 83690; 83735; 84100; 85025; 85610; 85730; 87340; 90935; 93005; 93306; 99285; C2623; J1200; J1644; J1815; J2250; J2997; J3010; J3490; J7030; Q9967; 36415-L1; 36415-TC